=== PATIENT | male | born 1955 | race Caucasian/White ===

== ENCOUNTER 2020-04-06 09:13 | Inpatient (IN) ==
--- NOTE | 2020-03-16 14:53 | PAT Medication Instructions ---
Medication Instructions Date of Service March 16, 2020 Home Medications albuterol sulfate 2 inh INHALATION QID PRN allopurinol 150 mg PO QPM aspirin [Aspir-81] 81 mg PO QPM atorvastatin 10 mg PO HS azelastine 1 spray INTRANASAL BID PRN calcitriol 0.25 mcg PO 3XWK fluticasone propionate [Flonase Allergy Relief] 1 spray INTRANASAL BID PRN folic acid 1 mg PO QPM ibuprofen 400 mg PO Q6H PRN lisinopril-hydrochlorothiazide 0.5 tab PO QPM mometasone [Asmanex Twisthaler] 1 inh INHALATION QAM nifedipine 30 mg PO QAM tamsulosin 0.4 mg PO HS Continue as directed calcitriol 0.25 mcg PO 3XWK (just do not take AM of surgery) ASK your surgeon for instructions ibuprofen 400 mg PO Q6H PRN Take morning of surgery With a small sip of water, OTHERWISE NOTHING TO EAT OR DRINK AFTER MIDNIGHT: mometasone [Asmanex Twisthaler] 1 inh INHALATION QAM nifedipine 30 mg PO QAM fluticasone propionate [Flonase Allergy Relief] 1 spray INTRANASAL BID PRN (if needed) albuterol sulfate 2 inh INHALATION QID PRN (use if needed; please bring with you to hospital day of surgery if possible) azelastine 1 spray INTRANASAL BID PRN (if needed) Take evening before surgery tamsulosin 0.4 mg PO HS lisinopril-hydrochlorothiazide 0.5 tab PO QPM fluticasone propionate [Flonase Allergy Relief] 1 spray INTRANASAL BID PRN (if needed) folic acid 1 mg PO QPM albuterol sulfate 2 inh INHALATION QID PRN (if needed) allopurinol 150 mg PO QPM aspirin [Aspir-81] 81 mg PO QPM atorvastatin 10 mg PO HS azelastine 1 spray INTRANASAL BID PRN (if needed) Other Notes If you have any questions please call us at [phone] or [phone] or [phone] or [phone]
--- NOTE | 2020-03-17 11:18 | Anesthesiology Consultation ---
Date of Service March 17, 2020 Assessment & Plan (1) Encounter for pre-operative examination: Chart Review Chart Review: Pending: Refer to Additional Notes / Consult section (03/18 stress test, respones from PCP, Covid testing three days prior to surgery ) and Patient seen in Pre Admission Testing Stress test scheduled 03/18. Also sent note to PCP re: decreased kidney function and if its baseline for patient Per PAT appt 03/17/20- pt resides in [facility]- no other recent travel. Did educate patient about need for Covid testing three days prior to surgery and to follow with surgeon regarding this. Educated patient on importance of quarantine and social distancing both for himself and household members from time of Covid test to surgery date Teaching & Discussion Pre-Anesthesia Teaching/Discussion Notes: Instructed NPO after midnight before surgery,except medications with 15 cc of water. Medication instructions provided according to the PAT guidelines. History Surgery Operation Date: 04/06/20 11:05 Proposed Procedures p L4-L5 Decompression and Fusion, Spinal Cord Monitoring - Lobo Bills DO Height/Weight Height: 5 ft 10 in Weight: 86.2 kg Allergies Allergy/AdvReac Type Severity Reaction Status Date / Time naproxen Allergy Unknown Hives Verified 03/10/20 08:04 Medications Home Medications Medication Instructions Recorded Confirmed Last Taken albuterol sulfate 2 inh INHALATION QID PRN 03/10/20 03/10/20 Unknown allopurinol 150 mg PO QPM 03/10/20 03/10/20 Unknown aspirin [Aspir-81] 81 mg PO QPM 03/10/20 03/10/20 Unknown atorvastatin 10 mg PO HS 03/10/20 03/10/20 Unknown azelastine 1 spray INTRANASAL BID PRN 03/10/20 03/10/20 Unknown calcitriol 0.25 mcg PO 3XWK 03/10/20 03/10/20 Unknown fluticasone propionate [Flonase 1 spray INTRANASAL BID PRN 03/10/20 03/10/20 Unknown Allergy Relief] folic acid 1 mg PO QPM 03/10/20 03/10/20 Unknown ibuprofen 400 mg PO Q6H PRN 03/10/20 03/10/20 Unknown lisinopril-hydrochlorothiazide 0.5 tab PO QPM 03/10/20 03/10/20 Unknown mometasone [Asmanex Twisthaler] 1 inh INHALATION QAM 03/10/20 03/10/20 Unknown nifedipine 30 mg PO QAM 03/10/20 03/10/20 Unknown tamsulosin 0.4 mg PO HS 03/10/20 03/10/20 Unknown Past Medical History Medical History Asthma SEASONAL- STABLE CURRENTLY Atrial fibrillation HX-POST OP TKA 5YRS AGO-F/U 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 Past Anesthesia History No Hx of Anesthesia Complications (BESIDES PONV) and No Family Hx of Anesthesia Complications History of PONV History of PONV and Hx of Motion Sickness Social History Smoking Status: Former smoker tobacco type: cigarettes and cigars Do You Dip or Chew Tobacco: No (QUIT MORE THAN 6 YRS AGO) Smoking End Date: QUIT 5-6 YRS AGO Hx Alcohol Use: Yes Alcohol type: beer and wine alcohol intake frequency: a few times a week Hx Substance Use: No Review of Systems Occ snoring- had sleep study- no AUSTEN Patient denies chest pain, shortness of breath, dyspnea on exertion, reflux, cough, wheezing, palpitations. No hx of seizures, stroke, ME. No hx of blood clots or blood transfusions Physical Exam Vital Signs VITALS BP 117/72 P 66 TEMP 98.5 SP02 99% RESP 16 Constitutional no acute distress ENMT Mouth: no TMJ clicking Thyromental Distance: > or= 3.5 Finger Breadths (4.0) Mallampati Class: II Capped/crowned molars Neck neck extension not limited Respiratory normal respiratory effort; no respiratory distress Auscultation: lungs clear to auscultation bilaterally; no wheezes Cardiovascular Rate/Rhythm: regular rate and regular rhythm Heart Sounds: no murmur Vessels: no carotid bruit Musculoskeletal Spine: no pain with cervical ROM Neurologic moves all extremities Psychiatric Orientation: alert Testing Laboratory Results 03/17/20 11:35 03/17/20 11:35 PT 9.8 Seconds (9.0-12.0) 03/17/20 11:35 INR 0.9 (0.9-1.1) 03/17/20 11:35 APTT 26.7 Seconds (21.0-31.0) 03/17/20 11:35 Urine Color Yellow 03/17/20 11:35 Urine Appearance Clear (Clear) 03/17/20 11:35 Urine pH 6.5 (4.5-7.5) 03/17/20 11:35 Ur Specific [place] 1.010 (1.000-1.030) 03/17/20 11:35 Urine Protein Negative (Negative) 03/17/20 11:35 Urine Glucose (UA) Negative (Negative) 03/17/20 11:35 Urine Ketones Negative (Negative) 03/17/20 11:35 Urine Nitrite Negative (Negative) 03/17/20 11:35 Ur Leukocyte Esterase Negative (Negative) 03/17/20 11:35 Blood Type A Negative 03/17/20 11:35 Antibody Screen NEGATIVE 03/17/20 11:35 Electrocardiogram Date: 03/17/20 Findings: + NSR @ (65) Left axis deviation. Chest X-Ray Date: 03/17/20 Findings: + NAD Calcified plaque of the thoracic aortic arch. Mild hyperinflation.
--- NOTE | 2020-03-17 12:08 | XRay Report ---
XR chest Pre-admission PA/Lat HISTORY: 64 years-old Male PAT preoperative exam. COMPARISON: No acute chest complaints TECHNIQUE: PA and lateral views of the chest FINDINGS: Cardiomediastinal and hilar silhouettes are within normal limits. Calcified plaque of the thoracic ao rtic arch. Mild hyperinflation. No pneumothorax, pleural effusion, airspace consolidation or overt pu lmonary edema. Bones of the chest appear grossly intact. IMPRESSION: No acute process. ACT 112: Negative or not required by law. The above report was generated using voice recognition software. It may contain grammatical, syntax o r spelling errors. Electronically signed by: Dillan Boswell M.D. 03/17/2020 12:07 PM
[2020-03-17 12:11] LABS: Appearance Urine Clear (Clear); Basophils # (auto) 0.06 K/uL (0-0.2); Basophils % (auto) 0.7 %; Bilirubin Urine Negative (Negative); Blood Urine Negative (Negative); Color Urine Yellow; Eosinophils # (auto) 2.02 K/uL (0-0.5); Eosinophils % (auto) 23.1 %; Glucose Urine UA Negative (Negative); Hemoglobin 13.8 g/dL (14.0-18.0); Immature Granulocytes # (auto) 0.05 K/uL (0.00-0.02); Immature Granulocytes % (auto) 0.6 %; Ketones Urine Negative (Negative); Leukocyte Esterase Urine Negative (Negative); Lymphocytes # (auto) 1.73 K/uL (1.2-3.4); Lymphocytes % (auto) 19.8 %; Mean Corpuscular Hgb Conc 34.5 g/dL (32-36); Mean Corpuscular Volume 98.5 fL (80-100); Mean Platelet Volume 10.6 fL (7.4-10.4); Monocytes # (auto) 0.69 K/uL (0.11-0.59); Monocytes % (auto) 7.9 %; Neutrophils # (auto) 4.18 K/uL (1.4-6.5); Neutrophils % (auto) 47.9 %; Nitrite Urine Negative (Negative); Platelet Count 200 K/uL (130-400); Protein Urine Negative (Negative); RDW Standard Deviation 49.8 fL (36.4-46.3); Red Blood Count 4.06 M/uL (4.7-6.1); Urobilinogen Urine Negative (Negative); White Blood Count 8.73 K/uL (4.8-10.8); pH Urine 6.5 (4.5-7.5)
[2020-03-17 12:17] LABS: BUN Creatinine Ratio 16.7 (10-20); Calcium 10.1 mg/dl (8.5-10.1); Creatinine Clr Calc Pharmacy 41.2 ml/min; Est GFR (African American) 42.3; Est GFR (Non-African American) 36.5; Potassium 4.5 mmol/L (3.5-5.1)
[2020-03-17 12:23] LABS: INR 0.9 (0.9-1.1); Partial Thromboplastin Time 26.7 Seconds (21.0-31.0); Prothrombin Time 9.8 Seconds (9.0-12.0)
--- NOTE | 2020-03-17 17:19 | Electrocardiogram Report ---
Test Reason : Blood Pressure : / mmHG Vent. Rate : 065 BPM Atrial Rate : 065 BPM P-R Int : 162 ms QRS Dur : 088 ms QT Int : 380 ms P-R-T Axes : 049 -34 044 degrees QTc Int : 395 ms Normal sinus rhythm Left axis deviation Abnormal ECG No previous ECGs available Confirmed by Jer Sharma ([id number]) on 03/17/2020 5:19:22 PM Referred By: Lobo Bills Confirmed By:Jer Sharma
[~2020-04-06 09:13] MED LIST: ACETAMINOPHEN 500 MG TAB PO SCH; CEFAZOLIN 2000MG 2,000 MG/15 ML SYR IV SCH; CeleBREX 200 MG CAP PO SCH; GABAPENTIN 600 MG DOSE PO SCH; LR 15ML/HR IV SCH; SCOPOLAMINE 1.5 MG TDSY TD SCH
[2020-04-06] MEDS ORDERED: ONDANSETRON INJ 2 MG/ML 2 ML VIAL ONE (09:53)
[2020-04-06] MEDS ORDERED: fentaNYL citrate 100 MCG/2 ML VIAL ONE (09:53)
[2020-04-06] MEDS ORDERED: DEXAMETHASONE SOD INJ 4 MG/ML VIAL ONE (09:53)
[2020-04-06] MEDS ORDERED: LIDOCAINE HCL 2% 2 ML VIAL/AMP(20MG/ML) INFIL ONE (09:53)
[2020-04-06] MEDS ORDERED: PROPOFOL IV EMULSION 10 MG/ML 20 ML VIAL IV ONE (09:53)
[2020-04-06] MEDS ORDERED: MIDAZOLAM HCL 1 MG/ML 2ML VIAL ONE (09:53)
[2020-04-06] MEDS ORDERED: GLYCOPYRROLATE 0.2 MG/ML VIAL ONE (09:53)
[2020-04-06] MEDS ORDERED: NEOSTIGMINE METHYLSULFATE 1 MG/ML 10ML VIAL ONE (09:53)
--- NOTE | 2020-04-06 10:18 | History & Physical Bridge Note ---
Date of Service April 06, 2020 History & Physical Bridge Note I have examined the patient, reviewed the History & Physical and in the interval since the performance of the History & Physical I have noted the following changes of clinical significance: no changes noted
--- NOTE | 2020-04-06 10:19 | History & Physical Report ---
Date of Service April 06, 2020 Assessment & Plan (1) Neurogenic claudication due to lumbar spinal stenosis: L4-L5 decompression fusion Present on Admission?: Yes History of Present Illness Chief Complaint: Back and bilateral leg pain Primary Care Provider: Ksenia Mercado This is a 64-year-old male who presents with chronic persistent back and leg pain. Failing extensive course of nonoperative care is here for surgical intervention. Allergies Allergy/AdvReac Type Severity Reaction Status Date / Time naproxen Allergy Unknown Hives Verified 04/06/20 09:43 Home Medications Home Medications Medication Instructions Recorded Confirmed Type albuterol sulfate 2 inh INHALATION QID PRN 03/10/20 04/06/20 History allopurinol 150 mg PO QPM 03/10/20 04/06/20 History aspirin [Aspir-81] 81 mg PO QPM 03/10/20 04/06/20 History atorvastatin 10 mg PO HS 03/10/20 04/06/20 History azelastine 1 spray INTRANASAL BID PRN 03/10/20 04/06/20 History calcitriol 0.25 mcg PO 3XWK 03/10/20 04/06/20 History fluticasone propionate [Flonase 1 spray INTRANASAL BID PRN 03/10/20 04/06/20 History Allergy Relief] folic acid 1 mg PO QPM 03/10/20 04/06/20 History ibuprofen 400 mg PO Q6H PRN 03/10/20 04/06/20 History lisinopril-hydrochlorothiazide 0.5 tab PO QPM 03/10/20 04/06/20 History mometasone [Asmanex Twisthaler] 1 inh INHALATION QAM 03/10/20 04/06/20 History nifedipine 30 mg PO QAM 03/10/20 04/06/20 History tamsulosin 0.4 mg PO HS 03/10/20 04/06/20 History Past Med/Surg History Medical History Asthma SEASONAL- STABLE CURRENTLY Atrial fibrillation HX-POST OP TKA 5YRS AGO-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 Social History Preferred Language: Azeri Communication Ability: Effective Rda Required: No Beliefs That Will Affect Care: None Current Living Situation: Spouse Other Information That Helps Us Care for You: No Feels Safe at Home: Yes Safety Concerns: Feels Safe At This Time Smoking Status: Former smoker Tobacco Type: cigarettes and cigars ; Do You Dip or Chew Tobacco: No (QUIT MORE THAN 6 YRS AGO) ; Smoking End Date: QUIT 5-6 YRS AGO ; Second Hand Exposure: No ; Hx Alcohol Use: Yes Alcohol type: beer and wine Hx Substance Use: No Physical Exam Physical Exam: Patient is alert and oriented neurologically intact. Heart regular rate and rhythm. Lungs clear to auscultation. Results & Data Vital Signs (Past 12 Hours) Vital Signs Temp Pulse Resp BP Pulse Ox 04/06/20 10:02 36.8 C 88 18 126/75 97
[2020-04-06] MEDS ORDERED: BACITRACIN INJ 50,000 UNIT VIAL ONE (10:31)
[2020-04-06] MEDS ORDERED: EPINEPHrine INJ 1 MG/ML AMP ONE (10:32)
[2020-04-06] MEDS ORDERED: BUPIVACAINE 0.5 % 5 MG/1 ML MPF 30ML VIAL ONE (10:32)
[2020-04-06] MEDS ORDERED: HYDROmorphone INJ 2 MG/ML SYR/VIAL ONE (11:09)
[2020-04-06] MEDS ORDERED: ePHEDrine sulfate 50 MG/ML SYR ONE (11:40)
[2020-04-06] MEDS ORDERED: PHENYLEPHRINE 100MCG/ML 5ML SYR ONE (11:40)
[2020-04-06] MEDS ORDERED: FLOSEAL HEMOSTATIC MATRIX 10ML TOP ONE (11:51)
--- NOTE | 2020-04-06 12:24 | Operative Report ---
Post Operative Report Pre & Post Diagnosis Operation Date: 04/06/20 11:05 Pre-Op Diagnosis: Lumbar Stenosis with Neurogenic Claudication L4-L5 Post-Op Diagnosis: Lumbar Stenosis with Neurogenic Claudication L4-L5 I identified the patient and participated in the time-out.: Yes Procedure Operation Date: 04/06/20 11:05 Actual Procedures #1 lumbar decompression with bilateral medial facetectomies and foraminotomies L3-4 and L4-5. #2 posterior spinal fusion L4-5. #3 placement posterior instrumentation L4-5. #4 interbody fusion L4-5. #5 placement peek cage 11 x 26 mm L4-5. #6 placement of locally harvested morselized autograft in the posterior lateral gutters. #7 placement infuse collagen sponge, master graft in the posterior lateral gutters and ostial amp and interbody space. Surgeon Lobo Bills DO Welt Trimming Machine Operator Susan Davidson Estimated Blood Loss 200 Findings Consistent with Post-Op Diagnosis Specimens None Indications This is a 64-year-old male that presents with above-mentioned diagnosis after failing extensive course of nonoperative care is here for surgical intervention. Description of Procedure Patient was met with identified informed consent obtained. Patient was then taken to the operative suite underwent intubation placed in a prone position the Pastor table on top of the Kyler frame. All bony prominences were well-padded eyes inspected to ensure no external pressure placed upon them. This point the lumbar spine was prepped and draped in normal sterile fashion. Sharp dissection with the assistance of Bovie cautery was performed down to and exposing the lamina transverse processes of L3-4 and L5. From a caudal cephalad fashion complete laminectomy of L4 was performed including partial laminectomy of L3 and bilateral medial facetectomies and foraminotomies addressing severe spinal stenosis. Pedicle screws were then placed in L4 and L5 bilaterally with assistance of fluoroscopy and appropriately sized kailyn placed. By way of a transforaminal approach on the right complete discectomy of L4-5 was performed endplates curetted to subcortical bleeding bone and a 11 x 26 mm peek cage filled with osteo-bone graft tapped in position. The rods were then locked into final position bilaterally. The transverse processes of L4 and L5 bur to subcortical bleeding bone. Infuse collagen sponge master graft local autograft placed in the posterior lateral gutters. 15 round GIGI drain was inserted. The incision was then closed with 1 Vicryl in the fascia 2-0 Vicryl subcutaneously and 4 Monocryl for final skin closure. Steri-Strip sterile dressings placed. Patient waken taken PACU stable condition. Please note spinal cord monitoring was utilized that the procedure no changes noted. Lastly Susan Davidson was present at the entire procedure involved the patient positioning complex portions of the procedure. I attest to the content of the Intraoperative Record and any orders documented therein. Any exceptions are noted below.
--- NOTE | 2020-04-06 13:12 | Fluoroscopy Report ---
FL lumbar spine 2-3V CLINICAL HISTORY: L4-5 DECOMPRESSION/FUSION/INTERBODY COMPARISON STUDY: None. FLUOROSCOPY TIME: 18 seconds. FLUOROSCOPIC IMAGES: 2 FINDINGS: Fluoroscopy was provided for L4-L5 discectomy with interbody spacer placement. Posterior de compression is noted with bilateral pedicle screws at the L4 and L5 levels. Hardware is intact. IMPRESSION: Fluoroscopy provided for L4-5 discectomy, posterior decompression and bilateral pedicle screw fusion. ACT 112: Negative or not required by law. Electronically signed by: Cory Randle M.D. 04/06/2020 1:10 PM
--- NOTE | 2020-04-06 13:23 | Anesthesiology Progress Note ---
Date of Service April 06, 2020 Anesthesia Post Procedure Vital Signs Vital Signs: Temp Pulse Pulse Resp BP BP Pulse Ox 04/06/20 13:20 36.6 C 95 H 21 115/85 95 04/06/20 13:10 88 16 119/70 95 04/06/20 13:00 97 H 15 121/70 100 04/06/20 12:50 96 H 15 127/72 100 04/06/20 12:42 36.5 C 99 H 11 L 129/77 100 04/06/20 10:02 36.8 C 88 18 126/75 97 Pain Intensity Bilateral Lower Back: Pain Intensity: 2 Back: Pain Intensity: 3 Transfer of Care Handoff Completed per policy Notes Mental Status: alert / awake / arousable and participated in evaluation Patient Amnestic to Procedure: Yes Nausea / Vomiting: adequately controlled Pain: adequately controlled Airway Patency, RR, SpO2: stable & adequate BP & HR: stable & adequate Hydration State: stable & adequate Anesthetic Complications: no major complications apparent and Pt Satisfied with anesthetic care
[2020-04-06] MEDS ORDERED: HYDROmorphone INJ 1 MG/ML SYRINGE IV PRN (13:38)
[2020-04-06] MEDS ORDERED: ONDANSETRON 4 MG OD TAB PO PRN (13:38)
[2020-04-06] MEDS ORDERED: DO NOT ADMINISTER FLU VACCINE PRN (13:38)
[2020-04-06] MEDS ORDERED: FAMOTIDINE 20 MG TAB PO PRN (13:38)
[2020-04-06] MEDS ORDERED: METOCLOPRAMIDE HCL INJ 5 MG/ML 2 ML VIAL IV PRN (13:38)
[2020-04-06] MEDS ORDERED: TRAMADOL HCL 50 MG TABLET PO PRN (13:38)
[2020-04-06] MEDS ORDERED: LORazepam 0.5 MG TAB PO PRN (13:38)
[2020-04-06] MEDS ORDERED: ACETAMINOPHEN 1,000 MG/100 ML VIAL IV PRN (13:38)
[2020-04-06] MEDS ORDERED: ALUMINUM/MAGNESIUM SUSP 30 ML UDC PO PRN (13:38)
[2020-04-06] MEDS ORDERED: LORazepam 0.5 MG/1 ML VIAL IV PRN (13:38)
[2020-04-06] MEDS ORDERED: SOD PHOSPHATE/SOD BIPHOSPHATE ENEMA 132 ML BTL PR PRN (13:38)
[2020-04-06] MEDS ORDERED: HYDROmorphone INJ 0.5 MG/0.5 ML SYR IV PRN (13:38)
[2020-04-06] MEDS ORDERED: DO NOT ADMINISTER PNEUMOCOCCAL VACCINE PRN (13:38)
[2020-04-06] MEDS ORDERED: MAGNESIUM HYDROXIDE SUSP 30 ML UDC PO PRN (13:38)
[2020-04-06] MEDS ORDERED: FLUTICASONE PROPIONATE NA SPR 16 GM BTL PRN (13:38)
[2020-04-06] MEDS ORDERED: bisacodyL 10 MG SUPP PR PRN (13:38)
[2020-04-06] MEDS ORDERED: NALOXONE HCL 0.4 MG/1 ML VIAL/CARP IV PRN (13:38)
[2020-04-06] MEDS ORDERED: PROMETHAZINE HCL 12.5 MG in SODIUM CHLORIDE 0.9% 50 ML IV PRN (13:38)
[2020-04-06] MEDS ORDERED: NON-FORMULARY MEDICATION (Azelastine 1 SPRAYS) INTNAS PRN (13:38)
[2020-04-06] MEDS ORDERED: ACETAMINOPHEN 500 MG TAB PO PRN (13:38)
[2020-04-06] MEDS ORDERED: ALBUTEROL HFA 8 GM INHALER INH PRN (13:38)
[2020-04-06] MEDS ORDERED: ONDANSETRON INJ 2 MG/ML 2 ML VIAL IV PRN (13:38)
[2020-04-06] MEDS ORDERED: KETOROLAC 30 MG/ML VIAL IV SCH (14:00)
[2020-04-06] MEDS ORDERED: ROCURONIUM BROMIDE 10 MG/ML 5 ML VIAL IV ONE (14:13)
[2020-04-06] MEDS: LACTATED RINGER'S 1,000 ML IV SCH ×2 (14:19→21:36)
--- NOTE | 2020-04-06 14:45 | Hospitalist Consultation ---
Date of Consultation April 06, 2020 Assessment & Plan (1) Neurogenic claudication due to lumbar spinal stenosis: - POD#0 L4-5 decompression and fusion by Dr. Bills - activity and wound care orders as per ortho - pain control with bowel regimen - PT/OT - monitor H/H for acute blood loss anemia and transfuse blood products PRN - EBL 200cc (2) Hypertension: -BP controlled, continue lisinopril/HCTZ and nifedipine (3) Chronic kidney disease: -unknown baseline -creat 1.9 on pre op labs -monitor renal functions, avoid nephrotoxic agents when able (4) DVT prophylaxis: -TEDs/SCDs as per spine ortho Thank you for this consultation. We will follow the patient with you during their hospital stay. You can [facility] via pager @ [phone]. Supervising Physician Co-Signing Physician Notes I saw this patient with the Nurse Practitioner, I participated in the history, physical, review of systems, and physical exam. I reviewed the medications with the patient and the Nurse Practitioner and helped reconcile the medications. I helped take a detailed family and social history as well. I formulated the assessment and plan personally with the Nurse Practitioner went over it with the patient. ROS-No Headache, No Visual Changes, No Nausea, No Vomiting, No Fever, No Chills, No Neck Pain or Stiffness, No Chest Pain, No Palpitations, No SOB, No SARABIA, No Cough, No Sputum, No Wheezing, No Abdominal Pain, No Diarrhea, No Hematemesis, No Hemoptysis, No Unexpected Weight Loss, No Flank pain, No Melena, No Hematochezia, No Frequency, No Urgency, No Burning, No Hematuria, No Rashes, No Diaphoresis. Appetite is Normal Physical Exam Gen-AAO x 3, NAD, Afebrile Head-NCAT, EOMI, PERRLA, Anicteric Sclera, No Posterior Pharyngeal Erythema Neck-Supple, No JVD, No Thyromegaly, No Masses, No LAD, No Bruits Lungs-Clear to Auscultation Bilaterally, No Rales, No Rhonchi, No Wheezing, No Crepitus Chest-No S4, +S1, +S2, No S3, No Murmurs, No Rubs, No Gallops, No Ectopy Abdomen-Soft, Bowel Sounds Present, Non Tender, Non Distended, No Hepatomegaly, No Splenomegaly, No Palpable Masses, No Rebound, No Rigidity, No Guarding Musculoskeletal-Full Range of Motion Bilaterally, No CVAT Extremities-No Cyanosis, No Clubbing, No Edema Nuero-Cranial Nerves II-XII grossly intact, Motor WNL, DTRs WNL, Strength WNL, Non Focal Psych-Normal Mood History of Present Illness Reason for Consultation: Post Op Medical Management Requesting Physician: Dr. Bills Attending Physician: Dr. Barron History of Present Illness 64 year old male with PMH HTN, CKD, HLD, atrial fibrillation s/p ablation, and other problems listed below who is s/p L4-5 decompression and fusion today by Dr. Bills. Post operatively the patient is doing well. He reports his pain is well controlled. No numbness or tingling to the lower extremities. Denies chest pain and shortness of breath. No lightheadedness or dizziness. Denies abdominal pain and nausea. Allergies Allergy/AdvReac Type Severity Reaction Status Date / Time naproxen Allergy Unknown Hives Verified 04/06/20 09:43 Home Medications Home Medications Medication Instructions Recorded Confirmed Type albuterol sulfate 2 inh INHALATION QID PRN 03/10/20 04/06/20 History allopurinol 150 mg PO QPM 03/10/20 04/06/20 History aspirin [Aspir-81] 81 mg PO QPM 03/10/20 04/06/20 History atorvastatin 10 mg PO HS 03/10/20 04/06/20 History azelastine 1 spray INTRANASAL BID PRN 03/10/20 04/06/20 History calcitriol 0.25 mcg PO 3XWK 03/10/20 04/06/20 History fluticasone propionate [Flonase 1 spray INTRANASAL BID PRN 03/10/20 04/06/20 History Allergy Relief] folic acid 1 mg PO QPM 03/10/20 04/06/20 History ibuprofen 400 mg PO Q6H PRN 03/10/20 04/06/20 History lisinopril-hydrochlorothiazide 0.5 tab PO QPM 03/10/20 04/06/20 History mometasone [Asmanex Twisthaler] 1 inh INHALATION QAM 03/10/20 04/06/20 History nifedipine 30 mg PO QAM 03/10/20 04/06/20 History tamsulosin 0.4 mg PO HS 03/10/20 04/06/20 History oxycodone 5 mg PO Q6H PRN #20 tab 04/06/20 Rx tramadol 50 mg PO Q6H PRN #30 tab 04/06/20 Rx Patient History Medical History Asthma SEASONAL- STABLE CURRENTLY Atrial fibrillation HX-POST OP TKA 5YRS AGO-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 Beliefs That Will Affect Care: None Current Living Situation: Spouse Other Information That Helps Us Care for You: No Feels Safe at Home: Yes Safety Concerns: Feels Safe At This Time Smoking Status: Former smoker Tobacco Type: cigarettes and cigars ; Do You Dip or Chew Tobacco: No (QUIT MORE THAN 6 YRS AGO) ; Smoking End Date: QUIT 5-6 YRS AGO ; Second Hand Exposure: No ; Hx Alcohol Use: Yes Alcohol type: beer and wine Hx Substance Use: No Review of Systems Review of Systems: ROS per HPI, all other systems reviewed and negative Physical Exam Constitutional: WD/WN, vitals as above Eyes: PERRL, conjunctivae normal, anicteric sclerae ENMT: external ear and nose normal, oropharynx normal Respiratory: normal respiratory effort, lungs clear to auscultation Cardiovascular: Rate/Rhythm: regular rate and regular rhythm Vessels: normal peripheral pulses Extremities: no edema Gastrointestinal (Abdomen): normal bowel sounds, soft, nontender, no hepatosplenomegaly Musculoskeletal: no cyanosis or clubbing, extremities motor strength 5/5 s/p back surgery, drain in place draining bloody drainage, pedal pushes and pulls strong BL Skin: no rashes, warm and dry Neurologic: PERRL, EOMI, accommodation nl, no face palsy, no dysarthria Psychiatric: A+Ox3, euthymic affect Results & Data Results & Data ([facility]) Vital Signs (Past 12 Hours) Vital Signs Temp Pulse Pulse Resp BP BP BP 04/06/20 14:33 98 H 16 133/80 04/06/20 14:02 67 16 154/70 H 04/06/20 13:43 36.5 C 68 16 116/72 04/06/20 13:20 36.6 C 95 H 21 115/85 04/06/20 13:10 88 16 119/70 04/06/20 13:00 97 H 15 121/70 04/06/20 12:50 96 H 15 127/72 04/06/20 12:42 36.5 C 99 H 11 L 129/77 04/06/20 10:02 36.8 C 88 18 126/75 Pulse Ox 04/06/20 14:33 99 04/06/20 14:02 100 04/06/20 13:43 92 04/06/20 13:20 95 04/06/20 13:10 95 04/06/20 13:00 100 04/06/20 12:50 100 04/06/20 12:42 100 04/06/20 10:02 97
[2020-04-06] MEDS ORDERED: COUGH DROP (SUGAR FREE) LOZ 24 LOZ/1 BOX BUCCAL ONE (16:26)
[2020-04-06] MEDS: CHECK SCOPOLAMINE PATCH PLACEMENT SCH (16:29)
[2020-04-06] MEDS: OXYCODONE HCL IR 5 MG TAB (IMMEDIATE RELEASE) PO PRN ×2 (16:39→20:36)
[2020-04-06] MEDS: TAMSULOSIN HCL 0.4 MG CAP PO SCH (20:24)
[2020-04-06] MEDS: FOLIC ACID 1 MG TAB PO SCH (20:24)
[2020-04-06] MEDS: ATORVASTATIN 10 MG TAB PO SCH (20:24)
[2020-04-06] MEDS: ASPIRIN 81 MG ECTAB PO SCH (20:24)
[2020-04-06] MEDS: CEFAZOLIN 2000MG 2,000 MG/15 ML SYR IV SCH (20:24)
[2020-04-06] MEDS: LISINOPRIL/HCTZ 20/12.5MG 1 TAB TAB PO SCH (20:25)
[2020-04-06] MEDS: allopurinoL 300 MG TAB PO SCH (20:25)
[2020-04-06] MEDS: DOCUSATE SODIUM/SENNA 50/8.6MG TAB PO SCH (20:25)
[2020-04-07] MEDS: CHECK SCOPOLAMINE PATCH PLACEMENT SCH ×4 (00:54→23:41)
[2020-04-07] MEDS: CEFAZOLIN 2000MG 2,000 MG/15 ML SYR IV SCH (01:02)
[2020-04-07] MEDS: POLYETHYLENE (MIRALAX) 17 GM PACK PO SCH ×4 (05:35→23:41)
[2020-04-07 06:37] LABS: Basophils # (auto) 0.01 K/uL (0-0.2); Basophils % (auto) 0.1 %; Hematocrit (blood only) 34.7 % (42-52); Hemoglobin 12.1 g/dL (14.0-18.0); Immature Granulocytes # (auto) 0.09 K/uL (0.00-0.02); Immature Granulocytes % (auto) 0.5 %; Lymphocytes # (auto) 1.37 K/uL (1.2-3.4); Lymphocytes % (auto) 8.3 %; Mean Corpuscular Hemoglobin 34.5 pg (25-34); Mean Corpuscular Hgb Conc 34.9 g/dL (32-36); Mean Corpuscular Volume 98.9 fL (80-100); Mean Platelet Volume 10.5 fL (7.4-10.4); Monocytes # (auto) 0.99 K/uL (0.11-0.59); Neutrophils # (auto) 13.95 K/uL (1.4-6.5); Neutrophils % (auto) 85.1 %; Platelet Count 187 K/uL (130-400); RDW Coefficient of Variation 14.6 % (11.5-14.5); RDW Standard Deviation 51.9 fL (36.4-46.3); Red Blood Count 3.51 M/uL (4.7-6.1); White Blood Count 16.41 K/uL (4.8-10.8)
[2020-04-07 07:14] LABS: BUN Creatinine Ratio 16.5 (10-20); Calcium 9.3 mg/dl (8.5-10.1); Creatinine Clr Calc Pharmacy 34.5 ml/min; Est GFR (African American) 34.2; Est GFR (Non-African American) 29.5; Potassium 4.9 mmol/L (3.5-5.1)
--- NOTE | 2020-04-07 07:59 | Anesthesiology Progress Note ---
Date of Service April 07, 2020 Anesthesia Post Procedure Vital Signs Vital Signs: Temp Pulse Pulse Resp BP BP BP 04/07/20 07:00 36.6 C 77 16 146/65 H 04/07/20 03:48 36.5 C 88 16 131/69 04/06/20 23:50 36.4 C L 74 16 120/68 04/06/20 19:33 36.7 C 63 16 115/72 04/06/20 16:27 36.4 C L 95 H 16 121/74 04/06/20 15:31 36.7 C 95 H 16 121/76 04/06/20 14:33 98 H 16 133/80 04/06/20 14:02 67 16 154/70 H 04/06/20 13:43 36.5 C 68 16 116/72 04/06/20 13:20 36.6 C 95 H 21 115/85 04/06/20 13:10 88 16 119/70 04/06/20 13:00 97 H 15 121/70 04/06/20 12:50 96 H 15 127/72 04/06/20 12:42 36.5 C 99 H 11 L 129/77 04/06/20 10:02 36.8 C 88 18 126/75 Pulse Ox 04/07/20 07:00 98 04/07/20 03:48 99 04/06/20 23:50 98 04/06/20 19:33 98 04/06/20 16:27 97 04/06/20 15:31 96 04/06/20 14:33 99 04/06/20 14:02 100 04/06/20 13:43 92 04/06/20 13:20 95 04/06/20 13:10 95 04/06/20 13:00 100 04/06/20 12:50 100 04/06/20 12:42 100 04/06/20 10:02 97 Pain Intensity Bilateral Lower Back: Pain Intensity: 2 Back: Pain Intensity: 2 Notes Mental Status: alert / awake / arousable and participated in evaluation Patient Amnestic to Procedure: Yes Nausea / Vomiting: adequately controlled Pain: adequately controlled Airway Patency, RR, SpO2: stable & adequate BP & HR: stable & adequate Hydration State: stable & adequate Anesthetic Complications: no major complications apparent
[2020-04-07] MEDS: FLUTICASONE FUROATE 100MCG 14 PUFFS/INHALER INH SCH (08:28)
[2020-04-07] MEDS: NIFEdipine EXTENDED REL 30 MG TABCR PO SCH (08:29)
--- NOTE | 2020-04-07 10:21 | Hospitalist Progress Note ---
Date of Service April 07, 2020 Assessment & Plan (1) Neurogenic claudication due to lumbar spinal stenosis: - POD#0 L4-5 decompression and fusion by Dr. Bills - activity and wound care orders as per ortho - pain control with bowel regimen - PT/OT - monitor H/H for acute blood loss anemia and transfuse blood products PRN - EBL 200cc (2) Hypertension: -BP controlled, continue lisinopril/HCTZ and nifedipine (3) Chronic kidney disease: -unknown baseline -creat 1.9 on pre op labs -monitor renal functions, avoid nephrotoxic agents when able (4) DVT prophylaxis: -TEDs/SCDs as per spine ortho Resume Post Op Care per Surgery Protocol Incentive Spirometry 10x per Hour Resume Relative Home Meds Where Appropriate PT/OT with appropriate fall precautions Transition from IV to PO Pain control DVT Prophylaxis Per Surgery Protocol Monitor Daily Labs ROS-No Headache, No Visual Changes, No Nausea, No Vomiting, No Fever, No Chills, No Neck Pain or Stiffness, No Chest Pain, No Palpitations, No SOB, No SARABIA, No Cough, No Sputum, No Wheezing, No Abdominal Pain, No Diarrhea, No Hematemesis, No Hemoptysis, No Unexpected Weight Loss, No Flank pain, No Melena, No Hematochezia, No Frequency, No Urgency, No Burning, No Hematuria, No Rashes, No Diaphoresis. Appetite is Normal, ore Back, Legs feel good Physical Exam Gen-AAO x 3, NAD, Afebrile, +Drain Head-NCAT, EOMI, PERRLA, Anicteric Sclera, No Posterior Pharyngeal Erythema Neck-Supple, No JVD, No Thyromegaly, No Masses, No LAD, No Bruits Lungs-Clear to Auscultation Bilaterally, No Rales, No Rhonchi, No Wheezing, No Crepitus Chest-No S4, +S1, +S2, No S3, No Murmurs, No Rubs, No Gallops, No Ectopy Abdomen-Soft, Bowel Sounds Present, Non Tender, Non Distended, No Hepatomegaly, No Splenomegaly, No Palpable Masses, No Rebound, No Rigidity, No Guarding Musculoskeletal-Full Range of Motion Bilaterally, No CVAT Extremities-No Cyanosis, No Clubbing, No Edema Nuero-Cranial Nerves II-XII grossly intact, Motor WNL, DTRs WNL, Strength WNL, Non Focal Psych-Normal Mood Admission and Anticipated Discharge Date Admission Date: April 06, 2020 Results & Data Results & Data ([facility]) Vital Signs (Past 12 Hours) Vital Signs Temp Pulse Resp BP Pulse Ox 04/07/20 07:00 36.6 C 77 16 146/65 H 98 04/07/20 03:48 36.5 C 88 16 131/69 99 04/06/20 23:50 36.4 C L 74 16 120/68 98
--- NOTE | 2020-04-07 14:06 | Orthopedic Progress Note ---
Date of Service April 07, 2020 Assessment & Plan (1) Neurogenic claudication due to lumbar spinal stenosis: This time we will continue physical therapy monitor his GIGI output anticipate discharge home in the next few days. Present on Admission?: Yes Admission and Anticipated Discharge Date Admission Date: April 06, 2020 Subjective Back pain controlled leg pain markedly improved. Physical Exam Physical Exam: Patient is in the chair at the bedside. He is comfortable. Is good strength testing. Results & Data ([facility]) Vital Signs (Past 12 Hours) Vital Signs Temp Pulse Resp BP Pulse Ox 04/07/20 11:15 36.8 C 64 16 107/62 99 04/07/20 07:00 36.6 C 77 16 146/65 H 98 04/07/20 03:48 36.5 C 88 16 131/69 99
[2020-04-07] MEDS: ATORVASTATIN 10 MG TAB PO SCH (19:41)
[2020-04-07] MEDS: FOLIC ACID 1 MG TAB PO SCH (19:41)
[2020-04-07] MEDS: LISINOPRIL/HCTZ 20/12.5MG 1 TAB TAB PO SCH (19:41)
[2020-04-07] MEDS: ASPIRIN 81 MG ECTAB PO SCH (19:41)
[2020-04-07] MEDS: TAMSULOSIN HCL 0.4 MG CAP PO SCH (19:41)
[2020-04-07] MEDS: DOCUSATE SODIUM/SENNA 50/8.6MG TAB PO SCH (19:42)
[2020-04-07] MEDS: allopurinoL 300 MG TAB PO SCH (19:42)
[2020-04-07] MEDS: OXYCODONE HCL IR 5 MG TAB (IMMEDIATE RELEASE) PO PRN (20:53)
[2020-04-08] MEDS: POLYETHYLENE (MIRALAX) 17 GM PACK PO SCH ×2 (05:56→12:48)
[2020-04-08 06:10] LABS: Hematocrit (blood only) 36.2 % (42-52); Hemoglobin 11.8 g/dL (14.0-18.0); Mean Corpuscular Hemoglobin 33.1 pg (25-34); Mean Corpuscular Hgb Conc 32.6 g/dL (32-36); Mean Corpuscular Volume 101.4 fL (80-100); Mean Platelet Volume 10.6 fL (7.4-10.4); Platelet Count 196 K/uL (130-400); RDW Coefficient of Variation 14.6 % (11.5-14.5); RDW Standard Deviation 53.4 fL (36.4-46.3); Red Blood Count 3.57 M/uL (4.7-6.1); White Blood Count 11.63 K/uL (4.8-10.8)
[2020-04-08 06:38] LABS: Est GFR (African American) 36.9; Est GFR (Non-African American) 31.8; Potassium 4.3 mmol/L (3.5-5.1)
[2020-04-08 06:39] LABS: BUN Creatinine Ratio 19.3 (10-20); Creatinine Clr Calc Pharmacy 36.8 ml/min
[2020-04-08] MEDS: CHECK SCOPOLAMINE PATCH PLACEMENT SCH (07:31)
[2020-04-08] MEDS: OXYCODONE HCL IR 5 MG TAB (IMMEDIATE RELEASE) PO PRN (07:31)
[2020-04-08] MEDS: NIFEdipine EXTENDED REL 30 MG TABCR PO SCH (07:32)
[2020-04-08] MEDS: FLUTICASONE FUROATE 100MCG 14 PUFFS/INHALER INH SCH (07:32)
[2020-04-08] MEDS ORDERED: DEXAMETHASONE SOD PHOSPHATE 8 MG in SYRINGE 0 ML IV SCH (09:00)
--- NOTE | 2020-04-08 09:12 | Hospitalist Progress Note ---
Date of Service April 08, 2020 Assessment & Plan (1) Neurogenic claudication due to lumbar spinal stenosis: POD#2 S/P L4-5 decompression and fusion by Dr. Bills Total GIGI drain output 200 over past 24 hours -pain management per ortho -wound management per ortho -bowel regimen -PT/OT as appropriate -DVT prophylaxis per ortho -incentive spirometry -Hgb: 11.8 today. Was 12.1 yesterday and 13.8 pre-op (2) Hypertension: BP on low side this mornin/57. Did already have morning nifedipine today -Caution with standing and ambulating, make slow transitions - lisinopril/HCTZ and nifedipine with holding parameters -Pt has BP cuff at home to monitor BP's (3) Chronic kidney disease: Unknown baseline -Cr: 2.1, was 2.29 yesterday. Cr: 1.9 on pre-op labs -monitor renal functions, avoid nephrotoxic agents when able (4) DVT prophylaxis: -TEDs/SCDs as per spine ortho Disposition per primary service Pt was seen and care coordinated with Dr Knowles. See addendum Admission and Anticipated Discharge Date Admission Date: April 06, 2020 Supervising Physician Co-Signing Physician Notes Patient seen and examined by me, care coordinated with NADIRA Hancock. Please refer to her note above for further detail. Patient is a 64-year-old male, status post L4-5 decompression and fusion by Dr. Bills, POD#2. Patient is sitting up in a chair, in no acute distress. Denies any fevers, chills, chest pain, shortness of breath, abdominal pain, nausea or vomiting. Earlier this morning patient was slightly hypotensive, patient says that this happens to him when he takes his morning blood pressure medications. Patient is otherwise alert and oriented, answers questions appropriately. Lungs are clear to auscultation bilaterally, no wheezing or rhonchi noted. Regular rate and rhythm noted. Abdomen soft, nontender nondistended, bowel sounds present. Moves extremity spontaneously and without difficulty. Skin is warm, dry, well perfused. Pt was advised to be cautious with standing and ambulating and to make slow transitions, which he agrees on and understands. Nifedipine already given today. Lisinopril/HCTZ and nifedipine ordered with holding parameters. Patient also advised to check his blood pressure at home and consult with PCP, process mechanic and registered nurse surgical services that he is following with as outpatient. Advised to continue to use incentive spirometry. Postop acute blood loss anemia,Hgb: 11.8 today, stable from yesterday (was 12.1 yesterday) and 13.8 pre-op. Anna Knowles MD Subjective Pt seen and examined. Sitting up in bedside chair. Reports back pain controlled but does have pain with getting out of bed and out of chair. Denies extremity pain or weakness. Passing flatus, no BM since 04/06/2020. Urinating without difficulty. Eating and drinking well. This morning with some dizziness with standing, no syncope. Denies fever/chills, diaphoresis, N/V, NEVAREZ, vision changes, neck pain, CP, SOB, orthopnea, palpitations, cough, sore throat, choking, otalgia, rhinorrhea, abdominal pain, extremity edema, rashes, urinary symptoms. Review of Systems Review of Systems: All systems reviewed & are unremarkable except as noted in HPI & below Physical Exam Physical Exam: General: no distress, WDWN Head: normocephalic, atraumatic Eyes: conjunctiva non-injected, anicteric ENT: normal inspection external ears, nose, mucous membranes moist Neck: supple, trachea midline Lungs: clear, no respiratory distress, no wheezing/rhonchi/rales CV: RRR, no murmur, no pretibial edema Abd: normal BS, soft, non-tender Back: dressing in place Ext: no cyanosis, no calf tenderness; flexion and extension of bilateral legs intact, distal pulses intact, sensation to light touch intact Neuro: A&O x 3, no focal deficits noted, normal affect Skin: warm, dry Results & Data Results & Data ([facility]) Vital Signs (Past 12 Hours) Vital Signs Temp Pulse Resp BP Pulse Ox 04/08/20 07:57 37.1 C 69 16 95/57 L 96 04/07/20 23:45 36.6 C 91 H 18 128/75 99 Laboratory Results Short CBC 03/17/20 04/07/20 04/08/20 Range/Units 11:35 06:12 05:45 WBC 11.63 H (4.8-10.8) K/uL Hgb 11.8 L (14.0-18.0) g/dL Hct 36.2 L (42-52) % Plt Count 196 (130-400) K/uL Creatinine 1.92 H 2.29 H (0.6-1.4) mg/dl 04/08/20 Range/Units 05:45 WBC (4.8-10.8) K/uL Hgb (14.0-18.0) g/dL Hct (42-52) % Plt Count (130-400) K/uL Creatinine 2.15 H (0.6-1.4) mg/dl BMP 04/08/20 05:45 Sodium 137 Potassium 4.3 Chloride 107 Carbon Dioxide 24 BUN 42 H Creatinine 2.15 H Glucose 101 H Calcium 9.0
--- NOTE | 2020-04-08 12:28 | Discharge Summary ---
Date of Service April 08, 2020 Admission HPI Per Admitting Provider This is a 64-year-old male who presents with chronic persistent back and leg pain. Failing extensive course of nonoperative care is here for surgical intervention. Principal Diagnosis Lumbar spinal stenosis with neurogenic claudication Discharge Data Allergies Allergy/AdvReac Type Severity Reaction Status Date / Time naproxen Allergy Unknown Hives Verified 04/06/20 09:43 Consultations 04/06/20 13:38 Consult Case Management - Discharge Planning Routine Consult Hospitalist Routine Procedures Performed Operation Date: 04/06/20 11:05 Actual Procedures p L4-L5 Decompression and Fusion, with Bone Morphogenetic Protein, Interbody Fusion, Application of Osteoamp Allograft, Spinal Cord Monitoring(Not Applicable) - Lobo Bills DO Ordered Studies 04/06/20 11:05 FL fluoroscopy <1hr Routine FL lumbar spine 2-3V Routine Hospital Course (1) Neurogenic claudication due to lumbar spinal stenosis: Patient went lumbar decompression fusion tolerated this well was taken to the orthopedic floor postoperative. Postop day 1 he is up and ambulating progressed to postop day #2. Leg pain improved. Extra strength testing. GIGI drain decreasing. Separately discharged home. Discharge orders and instructions from the chart for further review. Total Time Total Time Spent Total Time Spent (In Minutes): 20 minutes Discharge Plan Discharge Items Patient Disposition: Home - Self-Care Reason For Visit: LUMBAR SPINAL STENOSIS W NEUROGENIC CLAUDICATION Discharge Diagnosis: Lumbar spinal stenosis with neurogenic claudication Activity: As commented below Non-emergency contact: Primary Care Provider Call non-emergency contact if: you have any medication questions Follow-up/Referrals: Ksenia Mercado M.D. [Primary Care Provider] - Diet: Regular Addtl Attending Provider Instructions: ACTIVITY RECOMMENDATIONS: SELF CARE INSTRUCTIONS AFTER THORACIC/LUMBAR FUSIONS 1. You may walk to your tolerance. It is good exercise for your legs and back. Expect some back and intermittent leg aches and pains. 2. You may perform "counter-top" level activities (make a sandwich, margaret with a project, etc.). 3. No bending or lifting of more than 10 pounds or back twisting of any nature (roll like a log when turning in bed). 4. You may ride in a car for 20-30 minutes at a time. No driving until after your first visit with your doctor. 5. Frequent changes of position and restricting sitting to 30 minutes at a time will help limit the amount of back spasms and stiffness you may experience. 6. You may discontinue the use of ambulatory aids (cane, crutches, etc.) once your strength and confidence allow. 7. You may automatic winder operator the shower and let water strike your incision when you arrive home at least once daily. Do not take a tub bath, sit in a hot tub or go into a swimming pool until after your first recheck in the office. SPECIAL CARE INSTRUCTIONS: VERY IMPORTANT TO READ AND REVIEW A. Your surgical incision has been closed with a cosmetic suture under the skin that will dissolve in about 6 weeks. In 14 days, you can use a pair of clean scissors and cut the suture that is left outside of the skin at the ends of your incision. 1. The small skin tapes can be removed 7 days after surgery if they have not fallen off by that point. 2. You may keep the wound open to air as much as possible to promote healing after post-op day number 5 unless told otherwise by your doctor. 3. If you think the wound looks like it is becoming infected (redness or worsening drainage) and/or you are experiencing fever, chill or worsening back pain and muscle spasms, contact the office so that we may evaluate you as soon as possible. B. Complications are uncommon, but please contact us if you have any signs or symptoms of: 1. wound infection (fever higher than 102.5 degrees F, redness, separation of wound, drainage, or increasing pain from the incision) 2. blood clots in legs (pain, swelling, redness and warmth in legs) 3. urinary tract infection (fever higher than 102.5 degrees F, burning upon urination or increased frequency of urination) 4. nerve problems (inability to walk on your toes or heels, numbness, loss of bowel or bladder control) 5. any other symptoms that concern you C. Please call the office at if you have any concerns or questions about your operation or recovery. D. No smoking! Smoking drastically decreases the chance of a solid fusion. E. Do not take any anti-inflammatory medications (Indocin, Advil, Motrin, Aspirin, Naprosyn, etc.) as these may inhibit the chance of a solid fusion. Tylenol is okay to take for pain. MANAGING PAIN AFTER SPINAL SURGERY 1. Narcotic medication is intended for short-term use and will be provided for surgical pain. Surgical pain usually lasts for a period of 4-6 weeks. Narcotic medication includes Percocet, Vicodin, Darvocet, Tylenol #3 or Lortab. 2. Longer-term pain is more appropriately treated with non-narcotic medication such as Tylenol ES. 3. Muscle spasm is not appropriately treated with narcotics. Muscle relaxers such as Soma, Flexeril or Skelaxin can be used along with Tylenol ES. 4. Remember that we all live with some "aches and pains". This is not unusual or uncommon after an injury or as we get older. a. Back pain is expected and may include muscle spasms for 4 to 6 weeks after surgery. The pain should gradually improve. If the pain worsens for no apparent reason, please contact the office. b. Intermittent leg pain may also be experienced and should not be concerned about unless it worsens for no apparent reason. If so, please contact the office. 5. We will provide appropriate medication within the normal guidelines of their prescribed use. We will also be very cautious and aware of potential abuse and extended duration of patients' medication needs. a. Pain medications are for your comfort and to assist with sleep and rest so that the tissue can heal. They are not provided in order to return to normal activity and should not be used through the day. To do so or worsening pain at night can result from ongoing tissue damage and development of tolerance to the prescribed medicine. 6. Please allow 2-3 days to process refills. Prescriptions will not be mailed but must be picked up at the office. FOLLOW UP VISIT: Keep your scheduled follow-up appointment. Any questions, please call the office at . Pending Studies at Discharge: No Stand-Alone Forms: My [place] [employer], Smoking Cessation Medications and DC Order Prescriptions: New oxycodone 5 mg tablet 5 mg PO Q6H PRN (Reason: pain, severe) Qty: 20 RF: 0 tramadol 50 mg tablet 50 mg PO Q6H PRN (Reason: pain, moderate) Qty: 30 RF: 0 Continued nifedipine 30 mg Tablet Extended Release 30 mg PO QAM RF: 0 folic acid 1 mg Tablet 1 mg PO QPM RF: 0 allopurinol 300 mg Tablet 150 mg PO QPM RF: 0 calcitriol 0.25 mcg Capsule 0.25 mcg PO 3XWK RF: 0 atorvastatin 10 mg Tablet 10 mg PO HS RF: 0 lisinopril-hydrochlorothiazide 20-12.5 mg Tablet 0.5 tab PO QPM RF: 0 aspirin [Aspir-81] 81 mg Tablet,Delayed Release (Dr/Ec) 81 mg PO QPM RF: 0 tamsulosin 0.4 mg Capsule 0.4 mg PO HS RF: 0 albuterol sulfate 90 mcg/actuation Hfa Aerosol Inhaler 2 inh INHALATION QID PRN (Reason: Wheezing) RF: 0 fluticasone propionate [Flonase Allergy Relief] 50 mcg/actuation [place],Suspension 1 spray INTRANASAL BID PRN (Reason: Congestion) RF: 0 azelastine 0.15 % (205.5 mcg) [place],Non-Aerosol 1 spray INTRANASAL BID PRN (Reason: Congestion) RF: 0 Asmanex Twisthaler 220 mcg/ actuation (120) Aerosol Powdr Breath Activated 1 inh INHALATION QAM RF: 0 Discontinued ibuprofen 200 mg Capsule 400 mg PO Q6H PRN (Reason: Pain) RF: 0 Discharge Orders: Discharge Order (Routine); Ordered 04/08/20 Ordered By: Lobo Bills Admission Data Admit Date/Time: 04/06/20 13:26 Attending Provider: Lobo Bills Admit Provider: Lobo Bills Primary Care Provider: Ksenia Mercado Other Providers: Jerod Knowles
[2020-04-08] MEDS ORDERED: CALCITRIOL 0.25 MCG CAPSULE PO SCH (21:00)
== END 2020-04-08 14:01 | disposition home or self-care (01) | DRG 454 ==
LOC: ASU 09:13 → 3E 13:26

== ENCOUNTER 2024-05-08 05:51 | Inpatient (IN) ==
--- NOTE | 2024-04-26 15:29 | PAT Medication Instructions ---
Medication Instructions Date of Service April 26, 2024 Home Medications albuterol sulfate 90 mcg/actuation aerosol inhaler 2 inh inhalation QID PRN Wheezing allopurinol 300 mg tablet 150 mg PO QPM atorvastatin 10 mg tablet 10 mg PO HS calcitriol 0.25 mcg capsule 0.25 mcg PO 5XWK fluticasone propionate 50 mcg/actuation nasal spray,suspension (Flonase Allergy Relief) 1 spray intranasal BID PRN Congestion folic acid 1 mg tablet 1 mg PO QPM mometasone 220 mcg/actuation(120 doses)breath activated powder inhaler (Asmanex Twisthaler) 1 inh inhalation BID tamsulosin 0.4 mg capsule 0.4 mg PO HS acetaminophen 500 mg tablet 500 mg PO Q6H PRN prn apixaban 5 mg tablet (Eliquis) 5 mg PO BID cholecalciferol (vitamin D3) 50 mcg (2,000 unit) capsule (Vitamin D3) 50 mcg PO QPM desonide 0.05 % topical cream 1 applic topical DAILY PRN prn lisinopril 5 mg tablet 5 mg PO HS meclizine 25 mg tablet 25 mg PO TID PRN prn metoprolol succinate 25 mg tablet,extended release 24 hr 25 mg PO QAM montelukast 10 mg tablet 10 mg PO PM sildenafil 100 mg tablet 100 mg PO UD PRN prn triamcinolone acetonide 55 mcg nasal spray aerosol (Nasacort) 1 spray intranasal DAILY vitamin A-vitamin C-vit E-min tablet 1 tab PO QPM vitamin B complex 1 cap PO QPM ASK your prescriber and surgeon apixaban 5 mg tablet (Eliquis) 5 mg PO BID STOP taking 2 weeks before surgery (or as soon as possible if surgery is within 2 weeks) vitamin A-vitamin C-vit E-min tablet 1 tab PO QPM STOP taking 24 hours before surgery desonide 0.05 % topical cream 1 applic topical DAILY PRN prn DO NOT take the morning of surgery calcitriol 0.25 mcg capsule 0.25 mcg PO 5XWK sildenafil 100 mg tablet 100 mg PO UD PRN prn Take morning of surgery With a small sip of water, OTHERWISE NOTHING TO EAT OR DRINK AFTER MIDNIGHT: albuterol sulfate 90 mcg/actuation aerosol inhaler 2 inh inhalation QID PRN Wheezing (use if needed; please bring rescue inhaler with you to hospital day of surgery if possible) fluticasone propionate 50 mcg/actuation nasal spray,suspension (Flonase Allergy Relief) 1 spray intranasal BID PRN Congestion (if needed) mometasone 220 mcg/actuation(120 doses)breath activated powder inhaler (Asmanex Twisthaler) 1 inh inhalation BID acetaminophen 500 mg tablet 500 mg PO Q6H PRN prn (if needed) meclizine 25 mg tablet 25 mg PO TID PRN prn (if needed) metoprolol succinate 25 mg tablet,extended release 24 hr 25 mg PO QAM Take evening before surgery albuterol sulfate 90 mcg/actuation aerosol inhaler 2 inh inhalation QID PRN Wheezing (if needed) allopurinol 300 mg tablet 150 mg PO QPM atorvastatin 10 mg tablet 10 mg PO HS fluticasone propionate 50 mcg/actuation nasal spray,suspension (Flonase Allergy Relief) 1 spray intranasal BID PRN Congestion (if needed) folic acid 1 mg tablet 1 mg PO QPM mometasone 220 mcg/actuation(120 doses)breath activated powder inhaler (Asmanex Twisthaler) 1 inh inhalation BID tamsulosin 0.4 mg capsule 0.4 mg PO HS acetaminophen 500 mg tablet 500 mg PO Q6H PRN prn (if needed) cholecalciferol (vitamin D3) 50 mcg (2,000 unit) capsule (Vitamin D3) 50 mcg PO QPM lisinopril 5 mg tablet 5 mg PO HS meclizine 25 mg tablet 25 mg PO TID PRN prn (if needed) montelukast 10 mg tablet 10 mg PO PM vitamin B complex 1 cap PO QPM Other Notes If you have any questions please call us at [phone] or [phone] or [phone] or [phone]
--- NOTE | 2024-04-29 10:50 | Anesthesiology Consultation ---
Date of Service April 29, 2024 Assessment & Plan (1) Encounter for pre-operative examination: - Infectious disease screening: Per assessment on 04/29/24: No known recent infectious disease contacts or current infectious disease symptoms. - Eliquis instructions per surgeon/prescriber - ER visit (04/21/24): "..presents after waking up with severe vertigo triggering nausea and vomiting.. his called EMS whom administered zofran with near resolution of his nausea. Vertigo lasted about 10 minutes and does not persist. All symptoms have resolved except for minimal residual nausea. Denies headache, diplopia, blurred vision, fevers, chest pain, abdominal pain, diarrhea, recent illness, cognitive impairment, numbness, weakness.. CT head without acute findings, but chronic ischemic findings noted.. admit to obs for CVA rule out. If negative workup I suspect this is peripheral vertigo based on positional triggers. CTA was not performed in ED due to poor GFR.. While pt laid down in CT scanner he had acute onset of recurrent vertigo and n/v, resolved after being given another dose of zofran" Head MRI done 04/21/24 during obs- no acute intracranial process. No acute infarct or intracranial hemorrhage. Patient did not have further recurrence and was discharged without issue. Patient states he was subsequently seen by PCP for preop evaluation appt. - Patient acceptable risk for surgery pending surgeon-ordered PCP (Dr. Ksenia Mercado's office/[facility], appt already done) and cardiology (Dr. Yang/Abel, appt TBD) preop evaluations. Chart Review Chart Review: Patient seen in Pre Admission Testing Teaching & Discussion Pre-Anesthesia Teaching/Discussion Notes: Instructed NPO after midnight before surgery,except medications with 15 cc of water. Medication instructions provided according to the PAT guidelines. History Surgery Operation Date: 05/08/24 11:55 Proposed Procedures p L4-L5 Hardware Removal, L3-L4 Decompression and Fusion, Spinal Cord Monitoring - Lobo Bills DO Height/Weight Height: 5 ft 10 in Weight: 89.4 kg Allergies Allergy/AdvReac Type Severity Reaction Status Date / Time naproxen Allergy Unknown Hives Verified 04/25/24 14:26 Medications Home Medications Medication Instructions Recorded Confirmed Last Taken albuterol sulfate 90 mcg/actuation 2 inh inhalation QID PRN Wheezing 03/10/20 04/25/2404/06/20 07:00 aerosol inhaler allopurinol 300 mg tablet 150 mg PO QPM 03/10/20 04/25/24 04/05/20 13:00 atorvastatin 10 mg tablet 10 mg PO 03/10/20 04/25/24 04/05/20 23:00 calcitriol 0.25 mcg capsule 0.25 mcg PO 5XWK 03/10/20 04/25/24 04/05/20 13:00 fluticasone propionate 50 1 spray intranasal BID PRN 03/10/20 04/25/24 04/05/20 13:00 mcg/actuation nasal Congestion spray,suspension (Flonase Allergy Relief) folic acid 1 mg tablet 1 mg PO QPM 03/10/20 04/25/24 04/05/20 13:00 mometasone 220 mcg/actuation(120 1 inh inhalation BID 03/10/20 04/25/24 04/06/20 07:00 doses)breath activated powder inhaler (Asmanex Twisthaler) tamsulosin 0.4 mg capsule 0.4 mg PO 03/10/20 04/25/24 04/05/20 23:00 acetaminophen 500 mg tablet 500 mg PO Q6H PRN prn 04/25/24 04/25/24 Unknown apixaban 5 mg tablet (Eliquis) 5 mg PO BID 04/25/24 04/25/24 Unknown cholecalciferol (vitamin D3) 50 50 mcg PO QPM 04/25/24 04/25/24 Unknown mcg (2,000 unit) capsule (Vitamin D3) desonide 0.05 % topical cream 1 applic topical DAILY PRN prn 04/25/24 04/25/24 Unknown lisinopril 5 mg tablet 5 mg PO 04/25/24 04/25/24 Unknown meclizine 25 mg tablet 25 mg PO TID PRN prn 04/25/24 04/25/24 Unknown metoprolol succinate 25 mg 25 mg PO QAM 04/25/24 04/25/24 Unknown tablet,extended release 24 hr montelukast 10 mg tablet 10 mg PO PM 04/25/24 04/25/24 Unknown sildenafil 100 mg tablet 100 mg PO UD PRN prn 04/25/24 04/25/24 Unknown triamcinolone acetonide 55 mcg 1 spray intranasal DAILY 04/25/24 04/25/24 Unknown nasal spray aerosol (Nasacort) vitamin A-vitamin C-vit E-min 1 tab PO QPM 04/25/24 04/25/24 Unknown tablet vitamin B complex 1 cap PO QPM 04/25/24 04/25/24 Unknown Past Medical History Medical History Asthma Atrial fibrillation Hx ablation Follows with Dr. Yang/Abel Chronic kidney disease Follows with Dr. Ware/Abel Depression History of prostate cancer Under surveillance History of vertigo [place] [facility] 04/21/2024, Rx meclizine PCP f/u 04/26/2024 Hyperlipidemia Hypertension Implantable loop recorder present Morbid obesity Spinal stenosis, lumbar region with neurogenic claudication White matter disease, unspecified Head CT 04/21/24: Mild atrophic and chronic ischemic white matter changes Exercise / Class Metabolic Activity II 4-5 Yardwork/Stairs/Walk up hill (one FS: No CP, no SOB) Past Family History Family History Other Family history non-contributory Past Surgical History Surgical History History of arthroscopy R/L knee History of colonoscopy History of lumbar fusion L4-5 decompression/fusion, [facility] (03/2020) History of repair of rotator cuff Right History of total knee replacement R/L Nausea and vomiting after administration of anesthetic agent S/P ablation of atrial fibrillation Past Anesthesia History No Hx of Anesthesia Complications and No Family Hx of Anesthesia Complications History of PONV History of PONV (post-op nausea) and Hx of Motion Sickness Social History Smoking Status: Former smoker tobacco type: cigarettes Do You Dip or Chew Tobacco: No Smoking End Date: Quit 10 years ago Hx Alcohol Use: No (No current/recent ETOH use) Hx Substance Use: No substance use type: does not use Review of Systems Patient denies chest pain, shortness of breath, dyspnea on exertion, fever, chills, cough, wheezing, palpitations. Physical Exam Vital Signs BP 100/63 P 61 TEMP 98.5 SP02 97%RA RESP 16 Physical Full cervical extension range of motion. Full TMJ range of motion. TMD 3 finger breaths Mallampati Score I Dentition: intact, + crowns (molars) Lungs: clear throughout to auscultation Cardiac: regular rate and rhythm, no murmurs noted Spine: normal Carotid arteries: negative bruit Extremities: no LE edema Lab Results Anesthesia Preop Results Results Anesthesia Widget: Na 138 mmol/L (136-145) 04/29/24 K 4.3 mmol/L (3.5-5.1) 04/29/24 Cl 107 mmol/L (98-107) 04/29/24 CO2 25 mmol/L (21-32) 04/29/24 BUN 40 mg/dl (6-23) H 04/29/24 Creat 1.99 mg/dl (0.6-1.4) H 04/29/24 Glucose Level 116 mg/dl (70-99(Fasting)) H 04/29/24 PTT 31 Seconds (21-31) 04/29/24 HA1c 5.8 % (4.5-5.6) H 04/29/24 Urine Color Yellow 04/29/24 Urine Appearance Clear (Clear) 04/29/24 Urine pH 5.5 (4.5-7.5) 04/29/24 Urine Specific [place] 1.012 (1.000-1.030) 04/29/24 Urine Protein Negative (Negative) 04/29/24 Urine Glucose (UA) Negative (Negative) 04/29/24 Urine Ketones Negative (Negative) 04/29/24 Urine Blood Negative (Negative) 04/29/24 Urine Nitrite Negative (Negative) 04/29/24 Urine Bilirubin Negative (Negative) 04/29/24 Urine Urobilinogen Negative (Negative) 04/29/24 Urine Leukocyte Esterase Negative (Negative) 04/29/24 Blood Type A Negative 04/29/24 Antibody Screen NEGATIVE 04/29/24 Testing Laboratory Results *CKD- stable/at baseline* 04/21/24 WBC 11.3 H/H 14.2/43.2 PLATELETS 197 PT 12.5 INR 1.0 Electrocardiogram Date: 04/21/24 NSR at 81bpm. LAD. Chest X-Ray Date: 04/29/24 FINDINGS: No pneumothorax. No pleural effusions. Small linear scarlike density at the left lung base remains unchanged. Otherwise, the lungs are clear. Calcified plaque within the aortic knob again noted. The heart is normal in size. No acute fractures. There is a small electronic device overlying the left anterior chest. IMPRESSION: No significant change compared to the prior study. No acute process. Other Testing CT head Date: 04/21/24 Mild atrophic and chronic ischemic white matter changes, but no acute intracranial abnormality appreciated. MRI head Date: 04/21/24 No acute intracranial process. Specifically, no acute infarct or acute intracranial hemorrhage.
[~2024-05-08 05:51] MED LIST changes: -ACETAMINOPHEN 500 MG TAB PO SCH; -CEFAZOLIN 2000MG 2,000 MG/15 ML SYR IV SCH; -CeleBREX 200 MG CAP PO SCH; -GABAPENTIN 600 MG DOSE PO SCH; -LR 15ML/HR IV SCH; -SCOPOLAMINE 1.5 MG TDSY TD SCH; +[UNRECOGNIZED DRUG - REMARK] SCH
[2024-05-08] MEDS ORDERED: CeleBREX 200 MG CAP PO SCH (06:00)
[2024-05-08] MEDS: GABAPENTIN 600 MG DOSE PO SCH (06:29)
[2024-05-08] MEDS: LR 15ML/HR IV SCH (06:29)
[2024-05-08] MEDS: LR 60ML/HR IV SCH (06:30)
[2024-05-08] MEDS ORDERED: ONDANSETRON INJ 2 MG/ML 2 ML VIAL IV PRN ×2 (06:41→11:01)
[2024-05-08] MEDS ORDERED: ePHEDrine sulfate 50 MG/ML AMP IV PRN (06:41)
[2024-05-08] MEDS ORDERED: ATROPINE SULFATE 0.1 MG/ML 10ML SYR IV PRN (06:41)
[2024-05-08] MEDS ORDERED: fentaNYL citrate PF 100 MCG/2 ML VIAL IV PRN (06:41)
[2024-05-08] MEDS ORDERED: HYDROmorphone INJ 1 MG/ML SYRINGE IV PRN ×2 (06:41→11:01)
[2024-05-08] MEDS: SCOPOLAMINE 1 MG/72 HR TDSY PATCH TD ONE ×2 (06:53)
[2024-05-08] MEDS ORDERED: DEXAMETHASONE SOD INJ 4 MG/ML VIAL ONE (06:58)
[2024-05-08] MEDS ORDERED: ONDANSETRON INJ 2 MG/ML 2 ML VIAL ONE (06:58)
[2024-05-08] MEDS ORDERED: PROPOFOL IV EMULSION 10 MG/ML 20 ML VIAL IV ONE (06:58)
[2024-05-08] MEDS ORDERED: ROCURONIUM BROMIDE 10 MG/ML 5 ML VIAL IV ONE (06:58)
[2024-05-08] MEDS ORDERED: LIDOCAINE 2% 2 ML VIAL/AMP(20MG/ML) INFIL ONE (06:58)
[2024-05-08] MEDS ORDERED: SUGAMMADEX SODIUM 200 MG/2 ML VIAL IV ONE (06:59)
[2024-05-08] MEDS ORDERED: MIDAZOLAM HCL 1 MG/ML 2ML VIAL ONE (06:59)
[2024-05-08] MEDS ORDERED: fentaNYL citrate PF 100 MCG/2 ML VIAL ONE (06:59)
[2024-05-08] MEDS ORDERED: GLYCOPYRROLATE 0.2 MG/ML VIAL ONE (07:05)
--- NOTE | 2024-05-08 07:32 | History & Physical Bridge Note ---
Date of Service May 08, 2024 History & Physical Bridge Note I have examined the patient, reviewed the History & Physical and in the interval since the performance of the History & Physical I have noted the following changes of clinical significance: no changes noted
--- NOTE | 2024-05-08 07:33 | History & Physical Report ---
Date of Service May 08, 2024 Assessment & Plan (1) Neurogenic claudication due to lumbar spinal stenosis: Plan: L4-L5 hardware removal L3-L4 decompression and fusion History of Present Illness Chief Complaint: Back and leg pain Primary Care Provider: Ksenia Mercado This is a 68-year-old male presents with chronic persistent back and leg pain after failing extensive course of nonoperative care is here for surgical invention. Allergies Allergy/AdvReac Type Severity Reaction Status Date / Time naproxen Allergy Unknown Hives Verified 05/08/24 06:23 Home Medications Medication Instructions Recorded Confirmed Type albuterol sulfate 90 mcg/actuation 2 inh inhalation QID PRN Wheezing 03/10/20 05/08/24 History aerosol inhaler allopurinol 300 mg tablet 150 mg PO QPM 03/10/20 05/08/24 History atorvastatin 10 mg tablet 10 mg PO HS 03/10/20 05/08/24 History calcitriol 0.25 mcg capsule 0.25 mcg PO 5XWK 03/10/20 05/08/24 History fluticasone propionate 50 1 spray intranasal BID PRN 03/10/20 05/08/24 History mcg/actuation nasal Congestion spray,suspension (Flonase Allergy Relief) folic acid 1 mg tablet 1 mg PO QPM 03/10/20 05/08/24 History mometasone 220 mcg/actuation(120 1 inh inhalation BID 03/10/20 05/08/24 History doses)breath activated powder inhaler (Asmanex Twisthaler) tamsulosin 0.4 mg capsule 0.4 mg PO QAM 03/10/20 05/08/24 History acetaminophen 500 mg tablet 500 mg PO Q6H PRN prn 04/25/24 05/08/24 History apixaban 5 mg tablet (Eliquis) 5 mg PO BID 04/25/24 05/08/24 History cholecalciferol (vitamin D3) 50 50 mcg PO QPM 04/25/24 05/08/24 History mcg (2,000 unit) capsule (Vitamin D3) desonide 0.05 % topical cream 1 applic topical DAILY PRN prn 04/25/24 05/08/24 History lisinopril 5 mg tablet 5 mg PO HS 04/25/24 05/08/24 History meclizine 25 mg tablet 25 mg PO TID PRN prn 04/25/24 05/08/24 History metoprolol succinate 25 mg 25 mg PO QAM 04/25/24 05/08/24 History tablet,extended release 24 hr montelukast 10 mg tablet 10 mg PO PM 04/25/24 05/08/24 History sildenafil 100 mg tablet 100 mg PO UD PRN prn 04/25/24 05/08/24 History triamcinolone acetonide 55 mcg 1 spray intranasal DAILY 04/25/24 05/08/24 History nasal spray aerosol (Nasacort) vitamin A-vitamin C-vit E-min 1 tab PO QPM 04/25/24 05/08/24 History tablet vitamin B complex 1 cap PO QPM 04/25/24 05/08/24 History Past Med/Surg History Problem List Neurogenic claudication due to lumbar spinal stenosis Encounter for pre-operative examination Chronic kidney disease Hypertension Medical History Asthma Atrial fibrillation Hx ablation Follows with Dr. Yang/Abel Chronic kidney disease Follows with Dr. Ware/Abel Depression History of prostate cancer Under surveillance History of vertigo [place] [facility] 04/21/2024, Rx meclizine PCP f/u 04/26/2024 Hyperlipidemia Hypertension Implantable loop recorder present Morbid obesity Spinal stenosis, lumbar region with neurogenic claudication White matter disease, unspecified Head CT 04/21/24: Mild atrophic and chronic ischemic white matter changes Surgical History History of arthroscopy R/L knee History of colonoscopy History of lumbar fusion L4-5 decompression/fusion, [facility] (03/2020) History of repair of rotator cuff Right History of total knee replacement R/L Nausea and vomiting after administration of anesthetic agent S/P ablation of atrial fibrillation Family History Other Family history non-contributory Social History Smoking Status: Former smoker Smoking End Date: Quit 10 years ago; Second Hand Exposure: No; Do You Dip or Chew Tobacco: No; Tobacco Cessation Education Requested by Patient: No Hx Alcohol Use: No (No current/recent ETOH use) Hx Substance Use: No Preferred Language: Moldovan Communication Ability: Effective Visual Impairment: Partially Limited Proposition Player Required: No Beliefs That Will Affect Care: None Current Living Situation: Spouse Other Information That Helps Us Care for You: No Feels Safe at Home: Yes Safety Concerns: Feels Safe At This Time Assistive Devices: Glasses Physical Exam Physical Exam: Patient is alert and oriented Heart regular in rhythm Lungs clear Results & Data Results & Data Vital Signs (Past 12 Hours) Vital Signs Temp Pulse Resp BP Pulse Ox O2 Del Method 05/08/24 06:21 36.6 C 67 20 146/87 H 97 Room Air
[2024-05-08] MEDS: ceFAZolin 2000MG 2,000 MG/15 ML SYR IV SCH ×2 (08:03→17:50)
[2024-05-08] MEDS: BUPIVACAINE/EPINEPHRINE 0.25% 1:200,000 30 ML VIAL ONE (08:30)
[2024-05-08] MEDS: ceFAZolin 330 MG/ML 1 GM VIAL ONE (09:31)
[2024-05-08] MEDS: FLOSEAL HEMOSTATIC MATRIX 10ML TOP ONE (09:32)
--- NOTE | 2024-05-08 09:33 | Operative Report ---
Post Operative Report Pre & Post Diagnosis Operation Date: 05/08/24 07:45 Pre-Op Diagnosis: Spinal Stenosis Lumbar Region with Neurogenic Claudication Post-Op Diagnosis: Spinal Stenosis Lumbar Region with Neurogenic Claudication I identified the patient and participated in the time-out.: Yes Procedure Operation Date: 05/08/24 07:45 Actual Procedures #1 removal of posterior instrumentation L4-5 per #2 exploration of fusion L4-5. #3 lumbar decompression with bilateral medial facetectomies and foraminotomies L2-L3 L3-L4. #4 posterior spinal fusion L3-L4. #5 placed posterior instrumentation L3-L4. #6 interbody fusion L3-L4. #7 placement of Spira 13 x 26 mm x 2 at L3-L4. #8 placement locally harvested morselized autograft and posterior gutters. #9 Placement of infuse collagen sponge, with Koros in the posterior lateral gutters and Morpheus bone graft interbody space. Surgeon Lobo Bills, Storage Wharfage Clerk Susan Davidson Estimated Blood Loss 350 Findings Consistent with Post-Op Diagnosis Specimens None Indications This is a 70-year-old male presents problems diagnosis of failed course of nonoperative care is here for surgical invention. Description of Procedure Patient was met with identified informed was obtained. Patient was then taken to the operative suite underwent patient placed in a prone position on the Pastor table on top of the Kyler frame. All bony prominences well-padded eyes inspected to ensure no external pressure placed upon the. This point the lumbar spine was prepped and draped in a sterile fashion. Sharp dissection with assistance of Bovie cautery from down to and exposing the lamina and transverse processes of L3 and instrumentation at L4-L5 bilaterally. And then proceeded to remove the hardware bilaterally explored the fusion mass noting it to be mature intact. Then performed a complete laminectomy of L3 including bilateral medial facetectomies and foraminotomies addressing severe spinal stenosis. This was followed by a partial laminectomy of L2 with bilateral medial facetectomies to address all lateral recess stenosis. Pedicle screws were then placed in L3-L4-L5 bilaterally with assistance of fluoroscopy and appropriate size kailyn placed. By way of transforaminal approach on the right a discectomy of L3-L4 was performed endplates guided to subcortical bleeding bone and a 13 x 26 mm spiral cage filled with Morpheus bone graft tapped in position. Then proceeded to the left transforaminal region at L3-L4. Again discectomy performed endplates guided to subcortical bleeding bone and a second 13 x 26 mm spiral cage with Morpheus tapped in position. The rods were then compressed locked into final position bilaterally. The transverse processes of L3 L4 burred to subcortical bleeding bone and infuse collagen sponge, with Koros and local autograft placed in the posterior gutters. 15 round GIGI drain inserted. The incision was then closed with 1 Vicryl fascia 2-0 Vicryl subcutaneously and 4 Monocryl for final skin closure. Steri-Strips and a sterile dressing placed. Patient waken taken to PACU stable condition. Please note spinal cord monitoring was utilized at the procedure no changes noted. Susan Davidson was present at the entire procedure and on the patient positioning complex portions of the surgery and final skin closure. Im ordering 20 grams of Triple [place] Collagen Powder (Study Edge [id number]) to treat an incision wound that was caused by a spine procedure. The incision is approximately 2 cm(W) x 4 cm(L) into the joint (D) in size and is a full thickness wound. Triple [place] collagen comes in 1 gram packets so 20 packets were ordered. Given the size of the wound, with light to moderate exudate I chose to order a 20 day supply. The patient will be provided instructions for proper application of the collagen wound kit. The patient will be asked to apply the collagen powder daily and then cover it with sterile dressings dispensed. Collagen was selected as I expect the collagen to attract monocytes and fibroblasts, act as a sacrificial substrate for MMPs, and ultimately proved a matrix for tissue and vessel growth. The collagen will act as a primary dressing in this scenario. It is medically necessary for proper healing of these wounds to improve bioavailability and contact with each wound surface, this is also to help prevent infection of wounds and promote healing ultimately leading to a better healing outcome and limit the risk of infection. I attest to the content of the Intraoperative Record and any orders documented therein. Any exceptions are noted below.
[2024-05-08] MEDS ORDERED: PHENYLEPHRINE 100MCG/ML 10ML SYR IV ONE (09:56)
--- NOTE | 2024-05-08 10:25 | Fluoroscopy Report ---
FL lumbar spine 2-3V CLINICAL HISTORY: L4-L5 HW REMOVAL L3-L4 DECOMPRESSION AND FUSION COMPARISON STUDY: 04/06/2020. FLUOROSCOPY TIME: 10 seconds FLUOROSCOPY IMAGES: 2 Ka,r: 7.4 mGy FINDINGS: Posterior decompression and fusion from L4 through S1 with pedicle screws and rods. Disc sp acers are in place. The hardware appears intact. IMPRESSION: Fluoroscopic assistance as above. ACT 112: Negative or not required by law. Electronically signed by: Murray Johnson M.D. 05/08/2024 10:24 AM
--- NOTE | 2024-05-08 10:49 | Anesthesiology Progress Note ---
Date of Service May 08, 2024 Anesthesia Post Procedure Vital Signs Vital Signs: Temp Pulse Resp BP Pulse Ox O2 Del Method O2 Flow Rate 05/08/24 10:20 75 14 117/72 96 Room Air 0 05/08/24 10:15 97.9 F 81 14 109/75 95 Room Air 0 05/08/24 10:05 75 12 105/64 99 Nasal Cannula 4 05/08/24 09:55 79 12 116/74 100 Nasal Cannula 4 05/08/24 09:47 97.0 F L 74 12 126/78 99 Nasal Cannula 4 05/08/24 06:21 97.9 F 67 20 146/87 H 97 Room Air Pain Intensity Lower Back: Pain Intensity: 4 Transfer of Care Handoff Completed per policy Notes Mental Status: alert / awake / arousable and participated in evaluation Patient Amnestic to Procedure: Yes Nausea / Vomiting: adequately controlled Pain: adequately controlled Airway Patency, RR, SpO2: stable & adequate BP & HR: stable & adequate Hydration State: stable & adequate Anesthetic Complications: no major complications apparent and Pt Satisfied with anesthetic care
[2024-05-08] MEDS ORDERED: FLUTICASONE PROPIONATE NA SPR 16 GM BTL PRN (11:01)
[2024-05-08] MEDS ORDERED: NALOXONE HCL 0.4 MG/1 ML VIAL/CARP IV PRN (11:01)
[2024-05-08] MEDS ORDERED: SOD PHOSPHATE/SOD BIPHOSPHATE ENEMA 132 ML BTL PR PRN (11:01)
[2024-05-08] MEDS ORDERED: ACETAMINOPHEN 1,000 MG/100 ML VIAL IV PRN (11:01)
[2024-05-08] MEDS ORDERED: diphenhydrAMINE Capsule 25 MG CAP PO PRN (11:01)
[2024-05-08] MEDS ORDERED: MAGNESIUM HYDROXIDE SUSP 30 ML UDC PO PRN (11:01)
[2024-05-08] MEDS ORDERED: FAMOTIDINE 20 MG TAB PO PRN (11:01)
[2024-05-08] MEDS ORDERED: METOCLOPRAMIDE HCL INJ 5 MG/ML 2 ML VIAL IV PRN (11:01)
[2024-05-08] MEDS ORDERED: ALBUTEROL HFA 8 GM INHALER INH PRN (11:01)
[2024-05-08] MEDS ORDERED: bisacodyL 10 MG SUPP PR PRN (11:01)
[2024-05-08] MEDS ORDERED: traMADol HCL 50 MG TABLET PO PRN (11:01)
[2024-05-08] MEDS ORDERED: ONDANSETRON 4 MG OD TAB PO PRN (11:01)
[2024-05-08] MEDS ORDERED: ACETAMINOPHEN 500 MG TAB PO PRN (11:01)
[2024-05-08] MEDS ORDERED: PROMETHAZINE HCL 12.5 MG in SODIUM CHLORIDE 0.9% 50 ML IV PRN (11:01)
[2024-05-08] MEDS ORDERED: LORazepam 0.5 MG in SYRINGE 0.25 ML IV PRN (11:01)
[2024-05-08] MEDS ORDERED: hydrOXYzine HCl 25 MG TAB PO PRN (11:01)
[2024-05-08] MEDS ORDERED: DO NOT ADMINISTER PNEUMOCOCCAL VACCINE PRN (11:01)
[2024-05-08] MEDS ORDERED: MECLIZINE HCL 25 MG TAB PO PRN (11:01)
[2024-05-08] MEDS ORDERED: HYDROmorphone INJ 0.5 MG/0.5 ML SYR IV PRN (11:01)
[2024-05-08] MEDS ORDERED: DO NOT ADMINISTER FLU VACCINE PRN (11:01)
[2024-05-08] MEDS ORDERED: LORazepam 0.5 MG TAB PO PRN (11:01)
[2024-05-08] MEDS ORDERED: ALUMINUM/MAGNESIUM SUSP 30 ML UDC PO PRN (11:01)
[2024-05-08] MEDS: LACTATED RINGER'S 1,000 ML IV SCH (11:09)
[2024-05-08] MEDS: oxyCODONE HCL IR 5 MG TAB (IMMEDIATE RELEASE) PO PRN (11:10)
[2024-05-08] MEDS ORDERED: TRIAMCINOLONE ACET 0.025% CR 15 GM TUBE EXT PRN (11:22)
--- NOTE | 2024-05-08 12:04 | Hospitalist Consultation ---
Date of Consultation May 08, 2024 Assessment & Plan (1) Neurogenic claudication due to lumbar spinal stenosis: (2) S/P lumbar spine operation: Plan Nadeem Smith is a 68y/o M with PMHx significant for HTN, hyperlipidemia, CKD, atrial fibrillation [implantable loop recorder present + history of ablation], history of prostate cancer, vertigo, white matter disease, depression and asthma who was referred to our [facility] for post-operative medical management after undergoing L4-L5 hardware removal + L3-L4 decompression and fusion performed by Dr. Bills. Neurogenic Claudication 2/2 Lumbar Spinal Stenosis S/P Lumbar Spine Operation POD#0 s/p L4-L5 hardware removal + L3-L4 decompression and fusion with Dr. Bills. EBL: 350mL & Pre-Op Hgb: 14.0 [04/21/2024] Per ortho for pain control, wound care, anticoagulation and activities. Continue incentive spirometry, PT/OT when appropriate as per ortho team. Monitor H/H for acute blood loss anemia and transfuse blood products PRN. Hypertension BP has remained stable post-operatively; On metoprolol succinate & lisinopril BLEACH MIXER - will continue. Atrial Fibrillation Implantable Loop Recorder Present On Eliquis & metoprolol succinate BLEACH MIXER; Eliquis currently on hold as per ortho spine team. Pt reports following w/ [facility] [place]; The loop recorder has been implanted for ~3 yrs according to the pt. Chronic Kidney Disease Pt follows w/ Dr. Ware in [place]. Cr 1.99 on 04/29/24, will repeat BMP in AM. On calcitriol M-F BLEACH MIXER - can continue; Calcium 10.1 on 04/29/24, will continue to monitor. Unknown baseline Cr level; Avoid nephrotoxic meds when able & monitor renal fx. Pt reports he is taking allopurinol 2/2 elevated uric acid levels - can continue. Hyperlipidemia: Can continue BLEACH MIXER statin therapy. Asthma Continue BLEACH MIXER Asmanex, montelukast & PRN albuterol inhaler. BPH w/ LUTS & H/O Prostate Cancer Can continue BLEACH MIXER tamsulosin; Pt follows w/ Dr. Lieberman in [place] [[facility]]. He is currently under close surveillance with routine PSA checks. DVT Prophylaxis: SCDs/TEDs - BLEACH MIXER Eliquis currently on hold as per ortho spine team. Code Status: FULL CODE PCP: Ksenia Mercado MD [[facility]] Disposition: Patient currently admitted in Med/Surg; however, will be transferred to Telemetry for close cardiac monitoring given afib - discharge planning as per primary orthopedic team. Thank you for this consultation. We will follow the patient with you during their hospital stay. You can reach a member of the [facility]ist Team 01/05 via [employer]. Patient seen in collaboration with Dr. Vazquez. Please see addendum. I spent a total of 50 minutes coordinating, documenting, and providing care for this patient excluding time spent in the performance of separately billed services. This included personally reviewing all current laboratories and imaging studies, medical reconciliation, outpatient chart review and discussion with specialists. This chart was completed in part utilizing Speech Voice Recognition Software. Grammatical errors, random word insertions, pronoun errors, and incomplete sentences are an occasional consequence of this system due to software limitations, ambient noise, and hardware issues. Any formal questions or concerns about the content, text, or information contained within the body of this dictation should be directly addressed to the provider for clarification. Supervising Physician Co-Signing Physician Notes Pt was seen and examined by myself, Zenia Vazquez MD on the day of service. Care was coordinated with Laura Hallman PA-C. 68yoM with PMHx significant for PAF, atrial flutter s/p ablation, current loop recorder in place. s/p L4-L5 hardware removal and L3-L4 decompression and fusion today with orthospine Dr Bills. Pt had previous L4-L5 fusion and decompression done in 2019 as well. Denies chest pain, SOB or palpitations on exam. RRR on exam, abdomen nontender Continue home metoprolol succ 25mg daily. Home Eliquis 5mg BID currently on hold in the postop setting by primary team, resume as soon as able. Continue lisinopril for HTN- consider discontinuing use in the setting of pt's CKD? AM labs, cbc, bmp, mag, phos Otherwise as above. I spent a total [id number] coordinating, documenting, and providing care for this patient excluding time spent in the performance of separately billed services History of Present Illness Reason for Consultation: Post-Operative Medical Management Requesting Physician: Lobo Bills DO Attending Physician: Lobo Bills DO History of Present Illness Nadeem Smith is a 68y/o M with PMHx significant for HTN, hyperlipidemia, CKD, atrial fibrillation [implantable loop recorder present + history of ablation], history of prostate cancer, vertigo, white matter disease, depression and asthma who was referred to our [facility] for post-operative medical management after undergoing L4-L5 hardware removal + L3-L4 decompression and fusion performed by Dr. Bills. History obtained from patient and associated chart review. Patient seen at bedside and was accompanied by his in the room. Patient reports that he is feeling well and has minimal pain at this time - he received 10mg oral oxycodone prior to my arrival in his room. He was able to get out of bed with a two-person assist to urinate since being post- operative. He is tolerating water intake without issue. Denies any SOB, chest pain, abdominal pain or urinary issues. He has not yet had a bowel movement since being post-operative. Allergies Allergy/AdvReac Type Severity Reaction Status Date / Time naproxen Allergy Unknown Hives Verified 05/08/24 06:23 Home Medications Medication Instructions Recorded Confirmed Type albuterol sulfate 90 mcg/actuation 2 inh inhalation QID PRN Wheezing 03/10/20 05/08/24 History aerosol inhaler allopurinol 300 mg tablet 150 mg PO QPM 03/10/20 05/08/24 History atorvastatin 10 mg tablet 10 mg PO HS 03/10/20 05/08/24 History calcitriol 0.25 mcg capsule 0.25 mcg PO 5XWK 03/10/20 05/08/24 History fluticasone propionate 50 1 spray intranasal BID PRN 03/10/20 05/08/24 History mcg/actuation nasal Congestion spray,suspension (Flonase Allergy Relief) folic acid 1 mg tablet 1 mg PO QPM 03/10/20 05/08/24 History mometasone 220 mcg/actuation(120 1 inh inhalation BID 03/10/20 05/08/24 History doses)breath activated powder inhaler (Asmanex Twisthaler) tamsulosin 0.4 mg capsule 0.4 mg PO QAM 03/10/20 05/08/24 History acetaminophen 500 mg tablet 500 mg PO Q6H PRN prn 04/25/24 05/08/24 History apixaban 5 mg tablet (Eliquis) 5 mg PO BID 04/25/24 05/08/24 History cholecalciferol (vitamin D3) 50 50 mcg PO QPM 04/25/24 05/08/24 History mcg (2,000 unit) capsule (Vitamin D3) desonide 0.05 % topical cream 1 applic topical DAILY PRN prn 04/25/24 05/08/24 History lisinopril 5 mg tablet 5 mg PO HS 04/25/24 05/08/24 History meclizine 25 mg tablet 25 mg PO TID PRN prn 04/25/24 05/08/24 History metoprolol succinate 25 mg 25 mg PO QAM 04/25/24 05/08/24 History tablet,extended release 24 hr montelukast 10 mg tablet 10 mg PO PM 04/25/24 05/08/24 History sildenafil 100 mg tablet 100 mg PO UD PRN prn 04/25/24 05/08/24 History triamcinolone acetonide 55 mcg 1 spray intranasal DAILY 04/25/24 05/08/24 History nasal spray aerosol (Nasacort) vitamin A-vitamin C-vit E-min 1 tab PO QPM 04/25/24 05/08/24 History tablet vitamin B complex 1 cap PO QPM 04/25/24 05/08/24 History Patient History Medical History White matter disease, unspecified Head CT 04/21/24: Mild atrophic and chronic ischemic white matter changes Morbid obesity History of vertigo [facility] 04/21/2024, Rx meclizine PCP f/u 04/26/2024 Implantable loop recorder present History of prostate cancer Under surveillance Depression Spinal stenosis, lumbar region with neurogenic claudication Hypertension Chronic kidney disease Follows with Dr. Ware/[facility] Asthma Atrial fibrillation Hx ablation Follows with Dr. Yang/[facility] Hyperlipidemia Surgical History History of lumbar fusion L4-5 decompression/fusion, [facility] (03/2020) S/P ablation of atrial fibrillation Nausea and vomiting after administration of anesthetic agent History of arthroscopy R/L knee History of repair of rotator cuff Right History of total knee replacement R/L History of colonoscopy Family History Other Family history non-contributory Social History Smoking Status: Former smoker Smoking End Date: Quit 10 years ago; Second Hand Exposure: No; Do You Dip or Chew Tobacco: No; Tobacco Cessation Education Requested by Patient: No Hx Alcohol Use: No (No current/recent ETOH use) Hx Substance Use: No Preferred Language: Namibian Communication Ability: Effective Visual Impairment: Partially Limited Loader Malt House Required: No Beliefs That Will Affect Care: None Current Living Situation: Spouse Other Information That Helps Us Care for You: No Feels Safe at Home: Yes Safety Concerns: Feels Safe At This Time Assistive Devices: Glasses Review of Systems Review of Systems: At least ten systems reviewed and negative, except as noted in the HPI. Physical Exam Physical Exam: General: WD/WN, vitals as above, NAD, sitting up in bed, pleasant, conversing appropriately. A+Ox3, euthymic affect. HEENT: Normocephalic, atraumatic. PERRL, conjunctivae normal, anicteric sclerae. External ear and nose normal, oropharynx normal. Respiratory: Normal respiratory effort, lungs clear to auscultation, no wheeze, rales, rhonchi. No accessory muscle use. Cardiovascular: Regular rate, rhythm, no murmur, normal peripheral pulses, no BLE edema. Vessels: No JVD. Abdomen/GI: Normal bowel sounds, soft, nontender, no hepatosplenomegaly. Extremities/Musculoskeletal: No cyanosis or clubbing, able to move all extremities, GIGI drain x 1 intact and draining sanguineous fluid. Neurologic: PERRL, EOMI, accommodation nl, no face palsy, no dysarthria, CN's II-XI not formally tested but appear grossly intact bilaterally. Skin: No rashes, normal color, warm/dry. Surgical site not directly visualized. Results & Data Results & Data Vital Signs (Past 12 Hours) Vital Signs Temp Pulse Pulse Resp BP Pulse Ox O2 Del Method 05/08/24 11:30 77 18 121/81 93 Room Air 05/08/24 11:00 78 18 121/78 95 Room Air 05/08/24 10:20 75 14 117/72 96 Room Air 05/08/24 10:15 36.6 C 81 14 109/75 95 Room Air 05/08/24 10:05 75 12 105/64 99 Nasal Cannula 05/08/24 09:55 79 12 116/74 100 Nasal Cannula 05/08/24 09:47 36.1 C L 74 12 126/78 99 Nasal Cannula 05/08/24 06:21 36.6 C 67 20 146/87 H 97 Room Air O2 Flow Rate 05/08/24 11:30 05/08/24 11:00 05/08/24 10:20 0 05/08/24 10:15 0 05/08/24 10:05 4 05/08/24 09:55 4 05/08/24 09:47 4 05/08/24 06:21 Diagnostic Findings Lumbar Spine X-Ray 05/08/24 07:45 FL lumbar spine 2-3V CLINICAL HISTORY: L4-L5 HW REMOVAL L3-L4 DECOMPRESSION AND FUSION COMPARISON STUDY: 04/06/2020. FLUOROSCOPY TIME: 10 seconds FLUOROSCOPY IMAGES: 2 Ka,r: 7.4 mGy FINDINGS: Posterior decompression and fusion from L4 through S1 with pedicle screws and rods. Disc spacers are in place. The hardware appears intact. IMPRESSION: Fluoroscopic assistance as above. ACT 112: Negative or not required by law. Electronically signed by: Murray Johnson M.D. 05/08/2024 10:24 AM Medications Administered Lactated Ringer's (Lr) 1,000 mls @ 100 mls/hr IV .Q10H PRERNA Stop: 06/07/24 11:00 Last Admin: 05/08/24 11:09 Dose: 100 mls/hr Documented By: STEPHANY Oxycodone HCl (Oxycodone Hcl Ir 5 Mg Tab (Immediate Release)) 5 - 10 mg PO Q4H PRN PRN Reason: Pain & Pre PT Stop: 05/22/24 11:00 Last Admin: 05/08/24 11:10 Dose: 10 mg Documented By: STEPHANY Discontinued Medications Bupivacaine HCl/Epinephrine Bitart (Bupivacaine/Epinephrine 0.25% 1:200,000 30 Ml Vial) Confirm Administered Dose 30 ml .ROUTE .STK-MED ONE Stop: 05/08/24 07:00 Last Admin: 05/08/24 08:30 Dose: 25 ml Documented By: GMB Cefazolin Sodium (Cefazolin 330 Mg/Ml 1 Gm Vial) Confirm Administered Dose 990 mg .ROUTE .STK-MED ONE Stop: 05/08/24 07:00 Last Admin: 05/08/24 09:31 Dose: 990 mg Documented By: GMB Gabapentin (Gabapentin 600 Mg Dose) 600 mg PO PREOP PRERNA Stop: 05/08/24 18:00 Last Admin: 05/08/24 06:29 Dose: 600 mg Documented By: HBM Lactated Ringer's (Lr) 1,000 mls @ 60 mls/hr IV .[id number] PRERNA Stop: 05/08/24 22:39 Last Admin: 05/08/24 06:30 Dose: Not Given Documented By: JOSELINEM Cefazolin Sodium (Ancef 2000mg) 2,000 mg in 15 mls @ 3.75 mls/min IV PREOP PRERNA; Protocol Stop: 05/08/24 18:00 Last Admin: 05/08/24 08:03 Dose: 3.75 mls/min Documented By: [id number] Lactated Ringer's (Lr) 1,000 mls @ 15 mls/hr IV .Q24H PRERNA Stop: 05/09/24 05:59 Last Infusion: 05/08/24 07:44 Dose: Infused Documented By: [facility] Admin: 05/08/24 06:29 Dose: 15 mls/hr Documented By: JYOTI Miscellaneous ( Floseal Hemostatic Matrix 10ml) 25 ml TOP ONCE ONE Stop: 05/08/24 09:32 Last Admin: 05/08/24 09:32 Dose: 25 ml Documented By: GMB Scopolamine (Scopolamine 1 Mg/72 Hr Tdsy Patch) Confirm Administered Dose 1 patch TD .STK-MED ONE Stop: 05/08/24 06:44 Last Admin: 05/08/24 06:53 Dose: Not Given Documented By: HBM Scopolamine (Scopolamine 1 Mg/72 Hr Tdsy Patch) 1 patch TD ONE ONE Stop: 05/08/24 06:49 Last Admin: 05/08/24 06:53 Dose: 1 patch Documented By: JYOTI
[2024-05-08] MEDS: CHECK SCOPOLAMINE PATCH PLACEMENT SCH (15:07)
[2024-05-08] MEDS: CEROVITE ADV FORMULA TAB PO SCH (20:49)
[2024-05-08] MEDS: VITAMIN B COMPLEX TAB PO SCH (20:49)
[2024-05-08] MEDS: ATORVASTATIN 10 MG TAB PO SCH (20:49)
[2024-05-08] MEDS: FOLIC ACID 1 MG TAB PO SCH (20:49)
[2024-05-08] MEDS: lisinopril 5 MG TAB PO SCH (20:49)
[2024-05-08] MEDS: CALCITRIOL 0.25 MCG CAPSULE PO SCH (20:50)
[2024-05-08] MEDS: CHOLECALCIFEROL 25 MCG (1000 UNITS) TAB PO SCH (20:50)
[2024-05-08] MEDS: allopurinoL 300 MG TAB PO SCH (20:50)
[2024-05-08] MEDS: DOCUSATE SODIUM/SENNA 50/8.6MG TAB PO SCH (20:50)
[2024-05-08] MEDS: MONTELUKAST SODIUM 10 MG TABLET PO SCH (20:50)
[2024-05-09] MEDS: POLYETHYLENE (MIRALAX) 17 GM PACK PO SCH (06:05)
[2024-05-09 07:33] LABS: Basophils # (auto) 0.03 K/uL (0.00-0.20); Basophils % (auto) 0.2 %; Eosinophils # (auto) 0.13 K/uL (0.00-0.50); Eosinophils % (auto) 0.9 %; Hematocrit (blood only) 37.1 % (42.0-52.0); Hemoglobin 12.4 g/dl (14.0-18.0); Immature Granulocytes # (auto) 0.12 K/uL (0.01-0.20); Immature Granulocytes % (auto) 0.9 %; Lymphocytes # (auto) 1.31 K/uL (1.20-3.40); Lymphocytes % (auto) 9.5 %; Mean Corpuscular Hemoglobin 33.4 pg (25.0-34.0); Mean Corpuscular Hgb Conc 33.4 g/dL (32.0-36.0); Mean Platelet Volume 10.5 fL (9.4-12.4); Monocytes # (auto) 1.71 K/uL (0.11-0.59); Monocytes % (auto) 12.4 %; Neutrophils # (auto) 10.45 K/uL (1.40-6.50); Neutrophils % (auto) 76.1 %; Platelet Count 172 K/uL (130-400); RDW Coefficient of Variation 13.2 % (11.5-14.5); RDW Standard Deviation 48.8 fL (36.4-46.3); Red Blood Count 3.71 M/uL (4.70-6.10); White Blood Count 13.75 K/ul (4.8-10.8)
[2024-05-09 07:58] LABS: BUN Creatinine Ratio 18.5 (10-20); Creatinine Clr Calc Pharmacy 42.4 ml/min; Est GFR (African American) 40.4 ml/min; Est GFR (Non-African American) 34.8 ml/min; Magnesium 1.7 mg/dl (1.7-2.4); Phosphorus 3.1 mg/dl (2.5-4.9); Potassium 4.1 mmol/L (3.5-5.1)
[2024-05-09] MEDS: FLUTICASONE FUROATE 200MCG 14 PUFFS/INHALER INH SCH (08:13)
[2024-05-09] MEDS: ACETAMINOPHEN 500 MG TAB PO PRN (08:13)
[2024-05-09] MEDS: METOPROLOL SUCC 25MG EXT REL TAB PO SCH (08:14)
[2024-05-09] MEDS: TAMSULOSIN HCL 0.4 MG CAP PO SCH (08:15)
[2024-05-09] MEDS: dexAMETHasone 6 MG in SYRINGE 0 ML IV SCH (08:15)
[2024-05-09] MEDS: TRIAMCINOLONE ACET NASAL SPRAY 10.8ML BTL SCH (08:16)
--- NOTE | 2024-05-09 08:52 | Orthopedic Progress Note ---
Date of Service May 09, 2024 Assessment & Plan (1) Neurogenic claudication due to lumbar spinal stenosis: Plan: Today we will begin physical therapy monitor his GIGI output anticipate discharge home in the next few days. Admission and Anticipated Discharge Date Admission Date: May 08, 2024 Subjective Back pain controlled leg pain markedly improved Physical Exam Physical Exam: Patient is in the chair at bedside. Comfortable. Discussed when to testing. Results & Data Vital Signs (Past 12 Hours) Vital Signs Temp Pulse Pulse Resp BP Pulse Ox O2 Del Method 05/09/24 07:59 36.8 C 70 18 128/71 98 Room Air 05/09/24 07:02 63 05/09/24 04:18 36.9 C 86 18 113/69 98 Room Air 05/08/24 23:00 72 05/08/24 22:45 36.9 C 84 18 114/69 98 Room Air
--- NOTE | 2024-05-09 16:30 | Hospitalist Progress Note ---
Date of Service May 09, 2024 Assessment & Plan (1) Neurogenic claudication due to lumbar spinal stenosis: (2) S/P lumbar spine operation: Plan Nadeem Smith is a 68y/o M with PMHx significant for HTN, hyperlipidemia, CKD, atrial fibrillation [implantable loop recorder present + history of ablation], history of prostate cancer, vertigo, white matter disease, depression and asthma who was referred to our [facility] Team for post-operative medical management after undergoing L4-L5 hardware removal + L3-L4 decompression and fusion performed by Dr. Bills. #Neurogenic Claudication 2/2 Lumbar Spinal Stenosis #S/P Lumbar Spine Operation POD#1 s/p L4-L5 hardware removal + L3-L4 decompression and fusion with Dr. Bills. Per ortho for pain control, wound care, anticoagulation and activities. Continue incentive spirometry, PT/OT when appropriate as per ortho team. #Acute blood loss anemia, s/p post operative loss EBL: 350mL & Pre-Op Hgb: 14.0 [04/21/2024] HDS Trend CBC in am Transfuse < 7 #Hypertension BP has remained stable post-operatively; On metoprolol succinate & lisinopril DIE KEEPER - will continue. #Atrial Fibrillation #Implantable Loop Recorder Present On Eliquis & metoprolol succinate DIE KEEPER; Eliquis currently on hold as per ortho spine team, resume as able. Pt reports following w/ [facility] [place]; #Chronic Kidney Disease Pt follows w/ Dr. Ware in [place]. Cr 1.99 on 04/29/24, remains stable postoperatively On calcitriol M-F DIE KEEPER - can continue; Calcium 10.1 on 04/29/24, will continue to monitor. Avoid nephrotoxic meds when able & monitor renal fx. #Hyperuricemia Pt reports he is taking allopurinol 2/2 elevated uric acid levels - can continue. #Hyperlipidemia: Can continue DIE KEEPER statin therapy. #Asthma Continue DIE KEEPER Asmanex, montelukast & PRN albuterol inhaler. #BPH w/ LUTS & H/O Prostate Cancer Can continue DIE KEEPER tamsulosin; Pt follows w/ Dr. Lieberman in [place] [[facility]]. He is currently under close surveillance with routine PSA checks. DVT Prophylaxis: SCDs/TEDs - DIE KEEPER Eliquis currently on hold as per ortho spine team. Code Status: FULL CODE PCP: Ksenia Mercado MD [[facility]] Disposition: Patient currently admitted in Med/Surg; however, will be transferred to Telemetry for close cardiac monitoring given afib - discharge planning as per primary orthopedic team. Thank you for this consultation. We will follow the patient with you during their hospital stay. You can reach a member of the [facility] Hospitalist Team 01/05 via [email or web address]. Admission and Anticipated Discharge Date Admission Date: May 08, 2024 Subjective NAEO Reports drainage aroun dJP drain site, but otherwise notes that pain in right leg is gone from radiculopathy Physical Exam Constitutional: WD/WN, vitals as above Respiratory: normal respiratory effort, lungs clear to auscultation Cardiovascular: RRR, no murmur, no edema Gastrointestinal (Abdomen): normal bowel sounds, soft, nontender, no hepatosplenomegaly Musculoskeletal: no cyanosis or clubbing, extremities motor strength 5/5 Results & Data Results & Data Vital Signs (Past 12 Hours) Vital Signs Temp Pulse Pulse Resp BP Pulse Ox O2 Del Method 05/09/24 16:14 83 05/09/24 15:06 36.7 C 67 18 130/73 99 Room Air 05/09/24 11:37 37.6 C H 65 15 111/66 96 Room Air 05/09/24 07:59 36.8 C 70 18 128/71 98 Room Air 05/09/24 07:02 63 Laboratory Results Short CBC 05/09/24 Range/Units 07:05 WBC 13.75 H (4.8-10.8) K/ul Hgb 12.4 L (14.0-18.0) g/dl Hct 37.1 L (42.0-52.0) % Plt Count 172 (130-400) K/uL BMP 05/09/24 07:05 Sodium 136 Potassium 4.1 Chloride 105 Carbon Dioxide 25 BUN 36 H Creatinine 1.95 H Glucose 144 H Calcium 9.0 Medications Administered Home Medications Medication Instructions Recorded Confirmed Last Taken albuterol sulfate 90 mcg/actuation 2 inh inhalation QID PRN Wheezing 03/10/20 05/08/24 05/08/24 04:30 aerosol inhaler allopurinol 300 mg tablet 150 mg PO QPM 03/10/20 05/08/24 05/07/24 12:00 atorvastatin 10 mg tablet 10 mg PO HS 03/10/20 05/08/24 05/07/24 22:00 calcitriol 0.25 mcg capsule 0.25 mcg PO 5XWK 03/10/20 05/08/24 05/07/24 12:00 fluticasone propionate 50 1 spray intranasal BID PRN 03/10/20 05/08/24 05/07/24 12:00 mcg/actuation nasal Congestion spray,suspension (Flonase Allergy Relief) folic acid 1 mg tablet 1 mg PO QPM 03/10/20 05/08/24 05/07/24 12:00 mometasone 220 mcg/actuation(120 1 inh inhalation BID 03/10/20 05/08/24 05/07/24 22:00 doses)breath activated powder inhaler (Asmanex Twisthaler) tamsulosin 0.4 mg capsule 0.4 mg PO QAM 03/10/20 05/08/24 05/07/24 08:00 acetaminophen 500 mg tablet 500 mg PO Q6H PRN prn 04/25/24 05/08/24 2 Weeks Ago ~04/24/24 apixaban 5 mg tablet (Eliquis) 5 mg PO BID 04/25/24 05/08/24 05/05/24 cholecalciferol (vitamin D3) 50 50 mcg PO QPM 04/25/24 05/08/24 05/07/24 22:00 mcg (2,000 unit) capsule (Vitamin D3) desonide 0.05 % topical cream 1 applic topical DAILY PRN prn 04/25/24 05/08/24 05/07/24 12:00 lisinopril 5 mg tablet 5 mg PO HS 04/25/24 05/08/24 05/07/24 22:00 meclizine 25 mg tablet 25 mg PO TID PRN prn 04/25/24 05/08/24 04/30/24 metoprolol succinate 25 mg 25 mg PO QAM 04/25/24 05/08/24 05/08/24 04:30 tablet,extended release 24 hr montelukast 10 mg tablet 10 mg PO PM 04/25/24 05/08/24 05/07/24 22:00 sildenafil 100 mg tablet 100 mg PO UD PRN prn 04/25/24 05/08/24 1 Week Ago ~05/01/24 triamcinolone acetonide 55 mcg 1 spray intranasal DAILY 04/25/24 05/08/2405/07 12:00 nasal spray aerosol (Nasacort) vitamin A-vitamin C-vit E-min 1 tab PO QPM 04/25/24 05/08/24 05/07/24 22:00 tablet vitamin B complex 1 cap PO QPM 04/25/24 05/08/24 05/07/24 12:00 oxycodone 5 mg tablet 5 mg PO Q6H PRN pain #30 tabs 05/09/24 Unknown tramadol 50 mg tablet 50 mg PO Q6H PRN pain, moderate 05/09/24 Unknown #30 tabs Active Medications Generic Name Dose Route Start Last Admin Trade Name Freq PRN Reason Stop Dose Admin Acetaminophen 1,000 mg 05/08/24 11:01 05/09/24 08:13 Acetaminophen 500 Mg Tab PO 06/07/24 11:00 1,000 mg Q8H PRN Administration MILD Pain Scale 1,2,3 & Pre PT Allopurinol 150 mg 05/08/24 21:00 05/08/24 20:50 Allopurinol 300 Mg Tab PO 06/07/24 20:59 150 mg QPM PRERNA Administration Atorvastatin Calcium 10 mg 05/08/24 21:00 05/08/24 20:49 Atorvastatin 10 Mg Tab PO 06/07/24 20:59 10 mg HS PRERNA Administration Calcitriol 0.25 mcg 05/08/24 21:00 05/08/24 20:50 Calcitriol 0.25 Mcg Capsule PO 06/07/24 20:59 0.25 mcg [id number] PRERNA Administration Fluticasone Furoate 1 puffs 05/09/24 09:00 05/09/24 08:13 Fluticasone Furoate 200mcg 14 Puffs/Inhaler INH 06/08/24 08:59 1 puffs DAILY PRERNA Administration Protocol Folic Acid 1 mg 05/08/24 21:00 05/08/24 20:49 Folic Acid 1 Mg Tab PO 06/07/24 20:59 1 mg QPM PRERNA Administration Dexamethasone 6 mg/ Syringe 1.5 mls @ 1 mls/min 05/09/24 09:00 05/09/24 08:15 IV 05/11/24 09:02 1 mls/min DAILY PRERNA Administration Lisinopril 5 mg 05/08/24 21:00 05/08/24 20:49 Lisinopril 5 Mg Tab PO 06/07/24 20:59 5 mg HS PRERNA Administration Metoprolol Succinate 25 mg 05/09/24 09:00 05/09/24 08:14 Metoprolol Succ 25mg Ext Rel Tab PO 06/08/24 08:59 25 mg QAM PRERNA Administration Miscellaneous 1 each 05/08/24 16:00 05/09/24 08:13 Check Scopolamine Patch Placement N/A 05/11/24 05:59 1 each QS PRERNA Administration Montelukast Sodium 10 mg 05/08/24 21:00 05/08/24 20:50 Montelukast Sodium 10 Mg Tablet PO 06/07/24 20:59 10 mg PM PRERNA Administration Multivitamins/Minerals 1 tab 05/08/24 21:00 05/08/24 20:49 Cerovite Adv Formula Tab PO 06/07/24 20:59 1 tab QPM PRERNA Administration Oxycodone HCl 5 - 10 mg 05/08/24 11:01 05/09/24 00:41 Oxycodone Hcl Ir 5 Mg Tab (Immediate Release) PO 05/22/24 11:00 5 mg Q4H PRN Administration Pain & Pre PT Polyethylene Glycol 17 gm 05/09/24 06:00 05/09/24 08:19 Polyethylene (Miralax) 17 Gm Pack PO 06/08/24 05:59 17 gm Q6 PRERNA Administration Senna/Docusate Sodium 2 tab 05/08/24 21:00 05/08/24 20:50 Docusate Sodium/Senna 50/8.6mg Tab PO 06/07/24 20:59 2 tab HS PRERNA Administration Tamsulosin HCl 0.4 mg 05/09/24 09:00 05/09/24 08:15 Tamsulosin Hcl 0.4 Mg Cap PO 06/08/24 08:59 0.4 mg QAM PRERNA Administration Triamcinolone Acetonide 1 sprays 05/09/24 09:00 05/09/24 08:16 Triamcinolone Acet Nasal Pearce 10.8ml Btl NA 06/08/24 08:59 Not Given DAILY PRERNA Vitamin B Complex 1 tab 05/08/24 21:00 05/08/24 20:49 Vitamin B Complex Tab PO 06/07/24 20:59 1 tab QPM PRERNA Administration Vitamin D 50 mcg 05/08/24 21:00 05/08/24 20:50 Cholecalciferol 25 Mcg (1000 Units) Tab PO 06/07/24 20:59 50 mcg QPM PRERNA Administration
[2024-05-10 08:51] VITALS: RESP 20; O2SAT 97
--- NOTE | 2024-05-10 10:24 | Discharge Summary ---
Date of Service May 10, 2024 Admission HPI Per Admitting Provider This is a 68-year-old male presents with chronic persistent back and leg pain after failing extensive course of nonoperative care is here for surgical invention. Principal Diagnosis Lumbar spinal stenosis with neurogenic claudication Discharge Data Allergies Allergy/AdvReac Type Severity Reaction Status Date / Time naproxen Allergy Unknown Hives Verified 05/08/24 06:23 Consultations 05/08/24 11:01 Consult Hospitalist Routine Procedures Performed Operation Date: 05/08/24 07:45 Actual Procedures p L3-L4 Decompression and Fusion, Spinal Cord Monitoring(Not Applicable) - Lobo Bills DO s L4-L5 Hardware Removal,(Not Applicable) - Lobo Bills DO Ordered Studies 05/08/24 07:45 [place] lumbar spine 2-3V Routine Hospital Course (1) Neurogenic claudication due to lumbar spinal stenosis: Patient went lumbar decompression fusion trial as well as taken orthopedic for postoperative. Postoperatively progressed well. Marked improvement of leg pain. GIGI drain decreased probably. Pain well-controlled. Excellent strength testing. Subsidy discharged home. Discharge orders instructions from the chart for further review. Total Time Total Time Spent Total Time Spent (In Minutes): 20 minutes Discharge Plan Discharge Items Patient Disposition: Home - Self-Care Reason For Visit: Spinal Stenosis Lumbar Region with Neurogenic [place] Discharge Diagnosis: Lumbar spinal stenosis with neurogenic claudication Activity: As commented below Non-emergency contact: Primary Care Provider Call non-emergency contact if: you have any medication questions Follow-up/Referrals: Ksenia Mercado M.D. [Primary Care Provider] - Diet: Regular Addtl Attending Provider Instructions: ACTIVITY RECOMMENDATIONS: SELF CARE INSTRUCTIONS AFTER THORACIC/LUMBAR FUSIONS 1. You may walk to your tolerance. It is good exercise for your legs and back. Expect some back and intermittent leg aches and pains. 2. You may perform "counter-top" level activities (make a sandwich, margaret with a project, etc.). 3. No bending or lifting of more than 10 pounds or back twisting of any nature (roll like a log when turning in bed). 4. You may ride in a car for 20-30 minutes at a time. No driving until after your first visit with your doctor. 5. Frequent changes of position and restricting sitting to 30 minutes at a time will help limit the amount of back spasms and stiffness you may experience. 6. You may discontinue the use of ambulatory aids (cane, crutches, etc.) once your strength and confidence allow. 7. You may pediatric care coordinator the shower and let water strike your incision when you arrive home at least once daily. Do not take a tub bath, sit in a hot tub or go into a swimming pool until after your first recheck in the office. SPECIAL CARE INSTRUCTIONS: VERY IMPORTANT TO READ AND REVIEW A. Your surgical incision has been closed with a cosmetic suture under the skin that will dissolve in about 6 weeks. In 14 days, you can use a pair of clean scissors and cut the suture that is left outside of the skin at t he ends of your incision. 1. The small skin tapes can be removed 7 days after surgery if they have not fallen off by that point. 2. You may keep the wound open to air as much as possible to promote healing after post-op day number 5 unless told otherwise by your doctor. 3. If you think the wound looks like it is becoming infected (redness or worsening drainage) and/or you are experiencing fever, chill or worsening back pain and muscle spasms, contact the office so that we may evaluate you as soon as possible. B. Complications are uncommon, but please contact us if you have any signs or symptoms of: 1. wound infection (fever higher than 102.5 degrees F, redness, separation of wound, drainage, or increasing pain from the incision) 2. blood clots in legs (pain, swelling, redness and warmth in legs) 3. urinary tract infection (fever higher than 102.5 degrees F, burning upon urination or increased frequency of urination) 4. nerve problems (inability to walk on your toes or heels, numbness, loss of bowel or bladder control) 5. any other symptoms that concern you C. Please call the office at if you have any concerns or questions about your operation or recovery. D. No smoking! Smoking drastically decreases the chance of a solid fusion. E. Do not take any anti-inflammatory medications (Indocin, Advil, Motrin, Aspirin, Naprosyn, etc.) as these may inhibit the chance of a solid fusion. Tylenol is okay to take for pain. MANAGING PAIN AFTER SPINAL SURGERY 1. Narcotic medication is intended for short-term use and will be provided for surgical pain. Surgical pain usually lasts for a period of 4-6 weeks. Narcotic medication includes Percocet, Vicodin, Darvocet, Tylenol #3 or Lortab. 2. Longer-term pain is more appropriately treated with non-narcotic medication such as Tylenol ES. 3. Muscle spasm is not appropriately treated with narcotics. Muscle relaxers such as Soma, Flexeril or Skelaxin can be used along with Tylenol ES. 4. Remember that we all live with some "aches and pains". This is not unusual or uncommon after an injury or as we get older. a. Back pain is expected and may include muscle spasms for 4 to 6 weeks after surgery. The pain should gradually improve. If the pain worsens for no apparent reason, please contact the office. b. Intermittent leg pain may also be experienced and should not be concerned about unless it worsens for no apparent reason. If so, please contact the office. 5. We will provide appropriate medication within the normal guidelines of their prescribed use. We will also be very cautious and aware of potential abuse and extended duration of patients' medication needs. a. Pain medications are for your comfort and to assist with sleep and rest so that the tissue can heal. They are not provided in order to return to normal activity and should not be used through the day. To do so or worsening pain at night can result from ongoing tissue damage and development of tolerance to the prescribed medicine. 6. Please allow 2-3 days to process refills. Prescriptions will not be mailed but must be picked up at the office. FOLLOW UP VISIT: Keep your scheduled follow-up appointment. Any questions, please call the office at . Pending Studies at Discharge: No Stand-Alone Forms: [facility], Smoking Cessation Medications and DC Order Prescriptions: New tramadol 50 mg tablet 50 mg PO Q6H PRN (Reason: pain, moderate) Qty: 30 0RF oxycodone 5 mg tablet 5 mg PO Q6H PRN (Reason: pain) Qty: 30 0RF Continued folic acid 1 mg Tablet 1 mg PO QPM allopurinol 300 mg Tablet 150 mg PO QPM calcitriol 0.25 mcg Capsule 0.25 mcg PO 5XWK atorvastatin 10 mg Tablet 10 mg PO HS tamsulosin 0.4 mg Capsule 0.4 mg PO QAM albuterol sulfate 90 mcg/actuation Hfa Aerosol Inhaler 2 inh INHALATION QID PRN (Reason: Wheezing) fluticasone propionate [Flonase Allergy Relief] 50 mcg/actuation Locust,Suspension 1 spray INTRANASAL BID PRN (Reason: Congestion) Asmanex Twisthaler 220 mcg/ actuation (120) Aerosol Powdr Breath Activated 1 inh INHALATION BID triamcinolone acetonide [Nasacort] 55 mcg Aerosol,Locust 1 spray INTRANASAL DAILY Rx Instructions: administer into each nostril lisinopril 5 mg Tablet 5 mg PO HS desonide 0.05 % Cream 1 applic TOPICAL DAILY PRN (Reason: prn) acetaminophen 500 mg Tablet 500 mg PO Q6H PRN (Reason: prn) sildenafil 100 mg tablet 100 mg PO UD PRN (Reason: prn) meclizine 25 mg Tablet 25 mg PO TID PRN (Reason: prn) montelukast 10 mg Tablet 10 mg PO PM metoprolol succinate 25 mg Tablet Extended Release 24 Hr 25 mg PO QAM vitamin B complex [B Complex] Capsule 1 cap PO QPM Ocuvite Tablet 1 tab PO QPM cholecalciferol (vitamin D3) [Vitamin D3] 50 mcg (2,000 unit) Capsule 50 mcg PO QPM Held Eliquis 5 mg Tablet 5 mg PO BID Hold Instructions: Resume on 05/11/24. Discharge Orders: Discharge Order (Routine); Ordered 05/10/24 Ordered By: Lobo Bills Admission Data Admit Date/Time: 05/08/24 09:36 Attending Provider: Lobo Bills Admit Provider: Lobo Bills Primary Care Provider: Ksenia Mercado Other Providers: Deya Castro
[2024-05-10 11:58] VITALS: BP 113/75; PULSE 69; TEMP 98.2
--- NOTE | 2024-05-10 12:57 | Hospitalist Progress Note ---
Date of Service May 10, 2024 Assessment & Plan (1) Neurogenic claudication due to lumbar spinal stenosis: (2) S/P lumbar spine operation: Plan Nadeem Smith is a 68y/o M with PMHx significant for HTN, hyperlipidemia, CKD, atrial fibrillation [implantable loop recorder present + history of ablation], history of prostate cancer, vertigo, white matter disease, depression and asthma [facility] after undergoing L4-L5 hardware removal + L3-L4 decompression and fusion performed by Dr. Bills. #Neurogenic Claudication 2/2 Lumbar Spinal Stenosis #S/P Lumbar Spine Operation POD#2 s/p L4-L5 hardware removal + L3-L4 decompression and fusion with Dr. Bills. Per ortho for pain control, wound care, anticoagulation and activities. Continue incentive spirometry, PT/OT when appropriate as per ortho team. #Acute blood loss anemia, s/p post operative loss EBL: 350mL & Pre-Op Hgb: 14.0 [04/21/2024] HDS Trend CBC in am Transfuse < 7 #Hypertension BP has remained stable post-operatively; On metoprolol succinate & lisinopril [employer] - will continue. #Atrial Fibrillation #Implantable Loop Recorder Present On Eliquis & metoprolol succinate [employer]RA[employer]; Eliquis currently on hold as per ortho spine team, resume Pt reports following w/ [facility] [place]; #Chronic Kidney Disease Pt follows w/ Dr. Ware in [place]. Cr 1.99 on 04/29/24, remains stable postoperatively On calcitriol M-F [employer] - can continue; Calcium 10.1 on 04/29/24, will continue to monitor. Avoid nephrotoxic meds when able & monitor renal fx. #Hyperuricemia Pt reports he is taking allopurinol 2/2 elevated uric acid levels - can continue. #Hyperlipidemia: Can continue [employer] statin therapy. #Asthma Continue [employer]RA[employer] Asmanex, montelukast & PRN albuterol inhaler. #BPH w/ LUTS & H/O Prostate Cancer Can continue [employer]RA[employer] tamsulosin; Pt follows w/ Dr. Lieberman in [place] [[facility]]. He is currently under close surveillance with routine PSA checks. resume upon d/c Code Status: FULL CODE PCP: Ksenia Mercado MD [[facility]] Disposition: Patient currently admitted in Med/Surg; however, will be transferred to Telemetry for close cardiac monitoring given afib - plan for d/c today Thank you for this consultation. We will follow the patient with you during their hospital stay. You can reach a member of the [facility] Hospitalist Team 01/05 via [employer]. Admission and Anticipated Discharge Date Admission Date: May 08, 2024 Subjective NAEO Working well with PT/ eager to dispo today Physical Exam Constitutional: WD/WN, vitals as above Cardiovascular: RRR, no murmur, no edema Gastrointestinal (Abdomen): normal bowel sounds, soft, nontender, no hepatosplenomegaly Musculoskeletal: no cyanosis or clubbing, extremities motor strength 5/5 Results & Data Results & Data Vital Signs (Past 12 Hours) Vital Signs Temp Pulse Pulse Resp BP BP Pulse Ox 05/10/24 10:41 36.8 C 69 20 113/75 97 05/10/24 10:04 90 05/10/24 08:10 36.7 C 92 H 20 107/69 97 05/10/24 03:26 36.7 C 73 18 143/74 H 98 O2 Del Method 05/10/24 10:41 Room Air 05/10/24 10:04 05/10/24 08:10 Room Air 05/10/24 03:26 Room Air Medications Administered Home Medications Medication Instructions Recorded Confirmed Last Taken albuterol sulfate 90 mcg/actuation 2 inh inhalation QID PRN Wheezing 03/10/20 05/08/24 05/08/24 04:30 aerosol inhaler allopurinol 300 mg tablet 150 mg PO QPM 03/10/20 05/08/24 05/07/24 12:00 atorvastatin 10 mg tablet 10 mg PO HS 03/10/20 05/08/24 05/07/24 22:00 calcitriol 0.25 mcg capsule 0.25 mcg PO 5XWK 03/10/20 05/08/24 05/07/24 12:00 fluticasone propionate 50 1 spray intranasal BID PRN 03/10/20 05/08/24 05/07/24 12:00 mcg/actuation nasal Congestion spray,suspension (Flonase Allergy Relief) folic acid 1 mg tablet 1 mg PO QPM 03/10/20 05/08/24 05/07/24 12:00 mometasone 220 mcg/actuation(120 1 inh inhalation BID 03/10/20 05/08/24 05/07/24 22:00 doses)breath activated powder inhaler (Asmanex InSpahaler) tamsulosin 0.4 mg capsule 0.4 mg PO QAM 03/10/20 05/08/24 05/07/24 08:00 acetaminophen 500 mg tablet 500 mg PO Q6H PRN prn 04/25/24 05/08/24 2 Weeks Ago ~04/24/24 apixaban 5 mg tablet (Eliquis) 5 mg PO BID 04/25/24 05/08/24 05/05/24 cholecalciferol (vitamin D3) 50 50 mcg PO QPM 04/25/24 05/08/24 05/07/24 22:00 mcg (2,000 unit) capsule (Vitamin D3) desonide 0.05 % topical cream 1 applic topical DAILY PRN prn 04/25/24 05/08/24 05/07/24 12:00 lisinopril 5 mg tablet 5 mg PO HS 04/25/24 05/08/24 05/07/24 22:00 meclizine 25 mg tablet 25 mg PO TID PRN prn 04/25/24 05/08/24 04/30/24 metoprolol succinate 25 mg 25 mg PO QAM 04/25/24 05/08/24 05/08/24 04:30 tablet,extended release 24 hr montelukast 10 mg tablet 10 mg PO PM 04/25/24 05/08/24 05/07/24 22:00 sildenafil 100 mg tablet 100 mg PO UD PRN prn 04/25/24 05/08/24 1 Week Ago ~05/01/24 triamcinolone acetonide 55 mcg 1 spray intranasal DAILY 04/25/24 05/08/24 05/07/24 12:00 nasal spray aerosol (Nasacort) vitamin A-vitamin C-vit E-min 1 tab PO QPM 04/25/24 05/08/24 05/07/24 22:00 tablet vitamin B complex 1 cap PO QPM 04/25/24 05/08/24 05/07/24 12:00 oxycodone 5 mg tablet 5 mg PO Q6H PRN pain #30 tabs 05/09/24 Unknown tramadol 50 mg tablet 50 mg PO Q6H PRN pain, moderate 05/09/24 Unknown #30 tabs Active Medications Generic Name Dose Route Start Last Admin Trade Name Sharad PRN Reason Stop Dose Admin Acetaminophen 1,000 mg 05/08/24 11:01 05/09/24 08:13 Acetaminophen 500 Mg Tab PO 06/07/24 11:00 1,000 mg Q8H PRN Administration MILD Pain Scale 1,2,3 & Pre PT Allopurinol 150 mg 05/08/24 21:00 05/09/24 20:02 Allopurinol 300 Mg Tab PO 06/07/24 20:59 150 mg QPM PRERNA Administration Atorvastatin Calcium 10 mg 05/08/24 21:00 05/09/24 20:02 Atorvastatin 10 Mg Tab PO 06/07/24 20:59 10 mg HS PRERNA Administration Calcitriol 0.25 mcg 05/08/24 21:00 05/09/24 20:02 Calcitriol 0.25 Mcg Capsule PO 06/07/24 20:59 0.25 mcg [id number] PRERNA Administration Fluticasone Furoate 1 puffs 05/09/24 09:00 05/10/24 09:19 Fluticasone Furoate 200mcg 14 Puffs/Inhaler INH 06/08/24 08:59 1 puffs DAILY PRERNA Administration Protocol Folic Acid 1 mg 05/08/24 21:00 05/09/24 20:02 Folic Acid 1 Mg Tab PO 06/07/24 20:59 1 mg QPM PRERNA Administration Dexamethasone 6 mg/ Syringe 1.5 mls @ 1 mls/min 05/09/24 09:00 05/10/24 09:19 IV 05/11/24 09:02 1 mls/min DAILY PRERNA Administration Lisinopril 5 mg 05/08/24 21:00 05/09/24 20:02 Lisinopril 5 Mg Tab PO 06/07/24 20:59 5 mg HS PRERNA Administration Metoprolol Succinate 25 mg 05/09/24 09:00 05/10/24 09:19 Metoprolol Succ 25mg Ext Rel Tab PO 06/08/24 08:59 25 mg QAM PRERNA Administration Miscellaneous 1 each 05/08/24 16:00 05/10/24 09:19 Check Scopolamine Patch Placement N/A 05/11/24 05:59 1 each QS PRERNA Administration Montelukast Sodium 10 mg 05/08/24 21:00 05/09/24 20:01 Montelukast Sodium 10 Mg Tablet PO 06/07/24 20:59 10 mg PM PRERNA Administration Multivitamins/Minerals 1 tab 05/08/24 21:00 05/09/24 20:01 Cerovite Adv Formula Tab PO 06/07/24 20:59 1 tab QPM PRERNA Administration Oxycodone HCl 5 - 10 mg 05/08/24 11:01 05/09/24 18:33 Oxycodone Hcl Ir 5 Mg Tab (Immediate Release) PO 05/22/24 11:00 5 mg Q4H PRN Administration Pain & Pre PT Polyethylene Glycol 17 gm 05/09/24 06:00 05/10/24 06:08 Polyethylene (Miralax) 17 Gm Pack PO 06/08/24 05:59 17 gm Q6 PRERNA Administration Senna/Docusate Sodium 2 tab 05/08/24 21:00 05/09/24 20:08 Docusate Sodium/Senna 50/8.6mg Tab PO 06/07/24 20:59 2 tab HS PRERNA Administration Tamsulosin HCl 0.4 mg 05/09/24 09:00 05/10/24 09:19 Tamsulosin Hcl 0.4 Mg Cap PO 06/08/24 08:59 0.4 mg QAM PRERNA Administration Triamcinolone Acetonide 1 sprays 05/09/24 09:00 05/10/24 09:21 Triamcinolone Acet Nasal [place] 10.8ml Btl NA 06/08/24 08:59 Not Given DAILY PRERNA Vitamin B Complex 1 tab 05/08/24 21:00 05/09/24 20:02 Vitamin B Complex Tab PO 06/07/24 20:59 1 tab QPM PRERNA Administration Vitamin D 50 mcg 05/08/24 21:00 05/09/24 20:02 Cholecalciferol 25 Mcg (1000 Units) Tab PO 06/07/24 20:59 50 mcg QPM PRERNA Administration
== END 2024-05-10 12:40 | disposition home or self-care (01) | DRG 454 ==
LOC: ASU 05:51 → 3E 09:36 → 2S 14:58
DX: J45.909 Unspecified asthma, uncomplicated; Z85.46 Personal history of malignant neoplasm of prostate; I12.9 Hypertensive chronic kidney disease with stage 1 through stage 4 chronic kidney disease, or unspecified chronic kidney disease; Z87.891 Personal history of nicotine dependence; D62 Acute posthemorrhagic anemia; M48.062 Spinal stenosis, lumbar region with neurogenic claudication; N18.9 Chronic kidney disease, unspecified; Z88.6 Allergy status to analgesic agent; H81.10 Benign paroxysmal vertigo, unspecified ear; Z79.01 Long term (current) use of anticoagulants; N40.1 Benign prostatic hyperplasia with lower urinary tract symptoms; Z96.89 Presence of other specified functional implants; Z98.1 Arthrodesis status